=== PATIENT | female | born 1955 | race Caucasian/White ===

== ENCOUNTER 2023-12-11 21:04 | Emergency (ER) | payer MEDICARE, OTHER, SELFPAY ==
[2023-12-11 21:18] LABS: % Basophils 0.4 % (0-2); % Eosinophils 3.1 % (0-6); % Immature Granulocytes 0.3 % (0-0.5); % Lymphocytes 34.3 % (20.5-51.1); % Monocytes 9.8 % (1.7-9.3); % Neutrophils 52.1 % (42.2-75.2); Absolute Eosinophils 0.2 10^3/uL (0-0.7); Absolute Lymphocytes 2.5 10^3/uL (1.2-3.4); Absolute Monocytes 0.7 10^3/uL (0.1-0.6); Absolute Neutrophils 3.7 10^3/uL (1.4-6.5); Hematocrit 35.5 % (37.0-47.0); Mean Corp Hgb Conc. 33.8 g/dL (33.0-37.0); Mean Corpuscular Hgb 27.1 pg (27.0-31.0); Mean Corpuscular Volume 80.3 fL (81.0-99.0); Mean Platelet Volume 8.8 fL (7.4-10.4); Nucleated Red Blood Cells % 0 %; Platelet Count 316 10^3/uL (130-400); Red Blood Cell Count 4.42 10^6/uL (4.20-5.40); Red Cell Dist. Width 13.7 % (11.5-14.5); White Blood Cell Count 7.1 10^3/uL (4.8-10.8)
[2023-12-11 21:31] LABS: ALT (SGPT) 10 U/L (0-35); AST (SGOT) 13 U/L (14-36); Alkaline Phosphatase 81 U/L (38-126); Blood Urea Nitrogen 12 mg/dl (7-17); Calcium 10.3 mg/dl (8.4-10.2); Carbon Dioxide 26 mmol/L (22-30); Chloride 105 mmol/L (98-107); Glucose 112 mg/dl (70-99); Lipase 62 U/L (23-300); Sodium 141 mmol/L (135-145); Total Bilirubin 0.4 mg/dl (0.2-1.3); Total Protein 6.9 g/dl (6.3-8.2); eGFR > 60.00
[2023-12-11 23:34] VITALS: BP 111/63
[2023-12-12] VITALS: BP 113/68
[2023-12-12] MEDS: NSS 1000 IV ×2 (00:06→03:22)
--- NOTE | 2023-12-12 00:08 | EDRN ---
called pharmacy for potassium drip
[2023-12-12] MEDS: KCL 270 MEQ IV (00:34)
--- NOTE | 2023-12-12 01:30 | ED.GENMED ---
History of Present Illness
General
Chief Complaint: Abdominal Symptoms
Source: patient and family (Daughter)
Exam Limitations: none
Time Seen by Provider: 12/11/23 23:26
Nursing documentation reviewed up to this point in time: agreed with
Travel History
Have you had any contact with someone who has COVID-19?: No
Do you have any symptoms of coronavirus? Fever > 100 degrees, chills, cough, shortness of breath, sore throat, loss of taste or smell, muscle aches, or headache?: No
History of Present Illness
History of Present Illness:
68-year-old female with a past medical history of obesity, hypertension, irritable bowel syndrome, diabetes, CAMILLE on CPAP who presents to the emergency room with her daughter for evaluation of abdominal pain and diarrhea. Patient reports onset of
symptoms about 10 days ago and they have been constant since that time. She reports about 8-10 daily episodes of essentially totally liquid nonbloody diarrhea. She says that she has been having crampy periumbilical to left-sided abdominal pain
associated with the diarrhea. She has not had any nausea or vomiting. No fevers or chills. She has not had any urinary issues. She says that she spoke with her primary doctor and yesterday dropped off a stool sample to be tested for C. difficile
but has not received any results. She denies any recent travel. She did have a recent course of antibiotics which was prolonged for treatment of H. pylori�she finished this course in mid October. She sees Dr. Calles for GI.
Past History
Past History
ED Past Surgical History: Orthopedic, Urological and Other
Social History
Personal: Single
Review of Systems
Review of Systems
All Other Systems: ROS reviewed and negative except as documented in HPI and ROS
Constitutional: Denies fever or chills
EENT: Denies sore throat or runny nose
Respiratory: Denies cough or trouble breathing
Cardiac: Denies chest pain or palpitations
ABD/GI: Reports abdominal pain and diarrhea; Denies nausea, vomiting or bloody stools
: Denies dysuria, frequency or flank pain
Musculoskeletal: Denies neck pain or back pain
Neurological: Denies dizzy or headache
Phy Exam
Physical Exam
Physical Exam:
General: Awake, alert, oriented x3; no acute distress
Head: Normocephalic, atraumatic
Eyes: Conjunctiva normal, sclera anicteric
Throat: Airway intact, dry mucous membranes
Neck: Trachea midline, supple without meningismus
Lungs: Clear to auscultation bilaterally, no wheezing, rales, rhonchi
Heart: Regular rate and rhythm, no murmurs, gallops, or rubs
Abd: Soft, non distended, tender to palpation across the lower abdomen with no peritoneal signs
Neuro: Cranial nerves grossly intact, speech fluid
Skin: no rash
Extremities: No edema in extremities, warm and well-perfused
Scores
Heart Failure Risk
Heart Failure Risk Score: Not Applicable
Heart Score for Chest Pain Patients
STEMI patient?: Not applicable
Withdrawal Assessment of Alcohol
Withdrawal Assessment Completed?: Not applicable
Course
Orders/Labs/Results
Orders:
Orders
12/11/23 21:13
Complete Blood Count/With Diff Urgent
Comprehensive Metabolic Panel Urgent
Lipase Urgent
12/11/23 23:28
0.9% Sodium Chloride 1000 ml [Nss] 1,000 ml IV BOLUS
12/11/23 23:29
STOOL [C difficile Antigen & Toxins] Urgent
ADDIE Source: Feces/Stool
Specimen Description:
Stool Culture Urgent
ADDIE Source: Feces/Stool
Specimen Description:
12/12/23 00:02
CT Abd/pelvis W Iv Cont Urgent
Reason For Exam: abd pain with diarrhea
12/12/23 00:09
Potassium Chloride [KCl] 40 meq 0.9% Sodium Chloride 250 ml [Nss] 250 ml IV NOW
12/12/23 01:54
Potassium Chloride [KCl] 20 meq PO NOW STA
12/12/23 03:00
0.9% Sodium Chloride 1000 ml [Nss] 1,000 ml IV 80 mls/hr
12/12/23 06:43
Potassium Urgent
Abnormal Lab Results
12/11/23 12/12/23
21:13 06:43
Hct 35.5 L %
(37.0-47.0)
MCV 80.3 L fL
(81.0-99.0)
Absolute Monos (auto) 0.7 H 10^3/uL
(0.1-0.6)
Monocytes % 9.8 H %
(1.7-9.3)
Potassium 3.0 L mmol/L 3.2 L mmol/L
(3.5-5.1) (3.5-5.1)
Glucose 112 H mg/dl
(70-99)
Calcium 10.3 H mg/dl
(8.4-10.2)
AST 13 L U/L
(14-36)
12/11/23 21:13
12/12/23 06:43
Vital Signs
Initial and Last Documented VS:
Initial Vital Signs
Temp Pulse Resp Pulse Ox
36.6 C 63 16 95
12/11/23 21:05 12/11/23 21:05 12/11/23 21:05 12/11/23 21:05
Last Documented Vital Signs
Temp Pulse Resp BP Pulse Ox
36.6 C 69 14 127/70 93
12/11/23 21:05 12/12/23 04:00 12/12/23 04:00 12/12/23 04:00 12/12/23 04:00
MDM/Problems Addressed
Differential Diagnosis Includes:
Colitis including C. difficile colitis, enteritis, diverticulitis
MDM/Problems Addressed:
68-year-old female presents for evaluation of abdominal pain and profuse diarrhea for the past 10 days. Vital signs are normal here. Exam as above. Plan to place an IV check labs including a CBC and a CMP. Will check CT of the abdomen pelvis.
Will send stool samples. Will provide IV hydration. Will reassess after the above.
Labs reviewed: CBC shows no clinically significant abnormalities, CMP shows hypokalemia 3.0 likely GI loss we will replete with IV potassium. Awaiting results of CT.
CT showed no acute intra-abdominal pathology to account for her symptoms. Suspect that this is likely a case of colitis; patient has been here in the emergency room for over 7 hours and has not had any diarrhea and so we were not able to send stool
samples. She did already submit outpatient stool studies yesterday although the results are pending. Her potassium after p.o. and IV potassium is uptrending and she appears well-hydrated after some fluids. Vital signs have been persistently
normal throughout her prolonged ED stay. There is no clear indication for admission at this point in time�I had a long discussion with the patient and her daughter. I explained that we should refrain from any antibiotics pending stool studies and
a are in agreement with this plan. I did offer admission for observation but patient feels comfortable with discharge and can follow-up with her primary doctor and GI as an outpatient. I did advise her regarding her potassium and we will start her
on a potassium supplement at home and I provided a prescription for repeat chemistries later this week to follow-up on her potassium level. I advised her to follow-up with her primary doctor this week to go over previously submitted stool studies
as well as the potassium levels. She indicated understanding and agreement with this plan. We spoke about return precautions and all questions were answered.
Chronic conditions affecting care:
PUD/H. pylori requiring prolonged antibiotic course�higher risk for C. difficile infection
*Radiology
Radiology exam reviewed: radiology read reviewed
*Pulse Oximetry
Patient hypoxic: no
*Critical Care Note
Total Time (30-74mins, 75-104mins- exclusive of procedures): Not Applicable
Data Reviewed
Source: patient, records and family
ED Attending Note
-
Portions of this chart may have been created with voice recognition software.� Occasional wrong word or��sound alike� substitutions may have occurred due to the inherent limitations of voice recognition software.
Discharge Plan
Departure
Patient Disposition: Home (Routine Discharge)
Date of Disposition: 12/12/23
Time of Disposition: 07:30
Patient with high blood pressure during this ER visit?: No
Discharge Problem:
Diarrhea, Hypokalemia
Instructions: Diarrhea in teens and adults, Dehydration, Adult (DC), Kinzers Diet
Prescriptions:
New
potassium chloride [K-Tab] 20 mEq tablet extended release
20 meq PO DAILY Qty: 20 0RF
No Action
acetaminophen [Tylenol] 325 mg Tablet
650 mg PO Q4H PRN (Reason: pain)
cyanocobalamin (vitamin B-12) [Vitamin B-12] 1,000 mcg Tablet
1,000 mcg PO DAILY
amlodipine [Norvasc] 10 mg Tablet
10 mg PO DAILY
paroxetine HCl [Paxil CR] 25 mg Tablet Extended Release 24 Hr
25 mg PO DAILY
valsartan-hydrochlorothiazide [Diovan HCT] 320-25 mg Tablet
1 tab PO DAILY
aspirin 81 mg Capsule
81 mg PO DAILY
Jardiance 25 mg Tablet
25 mg PO DAILY
Trulicity 0.75 mg/0.5 mL Pen Injector
0.75 mg SC QWEEK
Gemtesa 75 mg Tablet
75 mg PO DAILY
Referrals:
Kaila Calles MD [Active] - Call in 1-3 days for appt
Activity Restrictions/Additional Instructions:
You were seen in the emergency room for diarrhea�in the emergency room you had blood work and a CT scan. Your blood work was significant for low potassium and you were given extra potassium here in the emergency room. You should take potassium
supplement as prescribed and you will need to have your potassium repeated later this week to ensure that he continues to improve. You should make sure that you are drinking plenty of fluids including electrolyte containing fluids such as Pedialyte
or Gatorade. You should stick to a bland diet for the next week. You should follow-up with your primary doctor later this week to follow-up on your outpatient stool studies�unfortunately we were unable to get a stool sample here to send for more
urgent studies. If you feel your symptoms are worsening or you have new symptoms that are concerning to you should return here to the emergency room for reassessment.
Thank you for visiting the Emergency Department at [facility].
1. Please schedule a follow up appointment as directed. Call first thing tomorrow morning to make an appointment.
2. If indicated, please take your medications as instructed and indicated on discharge paperwork.
3. If any of your symptoms do not improve, or persist, or become more severe within 6-12 hours, please return to the emergency department for further care.
4. Please return to the emergency department if you develop a headache, neck pain/stiffness, fever greater than 100.4F, chest pain, shortness of breath, persistent nausea, vomiting, slurred speech, difficulty walking, numbness/tingling, weakness,
signs of infection or any other symptoms that are worrisome to you.
Please call [phone] if you have any questions.
Interventions
Interventions:
*Risk Screen - Suicide Last Done: 12/11/23 21:05
*General Assessment Last Done: 12/11/23 21:05
*Neglect/Abuse Screening Last Done: 12/11/23 21:05
ED- Fall Risk Assessment Last Done: 12/11/23 23:24
*ED COVID-19 Vaccine History Last Done: 12/11/23 23:24
NB-Yxhwbd-Fkqfmcdtyt Assessment Last Done: 12/11/23 23:24
Discharge Date and Time
Print Language: YAKUT
[2023-12-12] MEDS: KCL 20 MEQ PO (02:03)
[2023-12-12 02:05] VITALS: BP 137/74
[2023-12-12 03:00] VITALS: BP 124/69
[2023-12-12 04:00] VITALS: BP 127/70
[2023-12-12 05:00] VITALS: BP 124/76
[2023-12-12 06:00] VITALS: BP 141/76
[2023-12-12 07:09] LABS: Potassium 3.2 mmol/L (3.5-5.1)
== END 2023-12-12 09:09 | disposition home or self-care (01) ==
LOC: EMR 21:04
PROVIDERS: Student in an Organized Health Care Education/Training Program; EMERGENCY PHYSICIAN Emergency Medicine
DX: E87.6 Hypokalemia (principal); R19.7 Diarrhea, unspecified; R10.9 Unspecified abdominal pain; I10 Essential (primary) hypertension; E11.9 Type 2 diabetes mellitus without complications; E66.9 Obesity, unspecified; G47.33 Obstructive sleep apnea (adult) (pediatric); K58.0 Irritable bowel syndrome with diarrhea; M19.90 Unspecified osteoarthritis, unspecified site; F41.9 Anxiety disorder, unspecified; F32.A Depression, unspecified; Z79.82 Long term (current) use of aspirin; Z88.0 Allergy status to penicillin
CPT/HCPCS: 99285; 96374; 96361; 74177; 80053; 83690; 84132; 85025; 87045; 87046; 87324; 87427; 87449; Q9967

== ENCOUNTER 2023-12-24 17:15 | Observation (INO) | payer MEDICARE, OTHER, SELFPAY ==
[2023-12-24] VITALS (8 sets, daily range): BP systolic 111–144; BP diastolic 57–84; BMI 36.9; BMI 36.6
[2023-12-24 13:16] LABS: % Basophils 0.6 % (0-2); % Eosinophils 2.3 % (0-6); % Immature Granulocytes 0.4 % (0-0.5); % Lymphocytes 21.2 % (20.5-51.1); % Monocytes 7.1 % (1.7-9.3); % Neutrophils 68.4 % (42.2-75.2); Absolute Basophils 0.1 10^3/uL (0-0.2); Absolute Eosinophils 0.2 10^3/uL (0-0.7); Absolute Lymphocytes 1.7 10^3/uL (1.2-3.4); Absolute Monocytes 0.6 10^3/uL (0.1-0.6); Absolute Neutrophils 5.4 10^3/uL (1.4-6.5); Hemoglobin 12.6 g/dL (12.0-16.0); Mean Corp Hgb Conc. 33.2 g/dL (33.0-37.0); Mean Corpuscular Hgb 26.8 pg (27.0-31.0); Mean Corpuscular Volume 80.7 fL (81.0-99.0); Mean Platelet Volume 8.7 fL (7.4-10.4); Nucleated Red Blood Cells % 0 %; Platelet Count 381 10^3/uL (130-400); Red Blood Cell Count 4.71 10^6/uL (4.20-5.40); Red Cell Dist. Width 14.1 % (11.5-14.5); White Blood Cell Count 7.9 10^3/uL (4.8-10.8)
[2023-12-24 13:54] LABS: ALT (SGPT) 11 U/L (0-35); AST (SGOT) 16 U/L (14-36); Albumin 4.2 g/dl (3.5-5.0); Alkaline Phosphatase 101 U/L (38-126); Blood Urea Nitrogen 13 mg/dl (7-17); Calcium 10.4 mg/dl (8.4-10.2); Carbon Dioxide 23 mmol/L (22-30); Chloride 110 mmol/L (98-107); Glucose 105 mg/dl (70-99); Potassium 3.7 mmol/L (3.5-5.1); Sodium 143 mmol/L (135-145); Total Bilirubin 0.5 mg/dl (0.2-1.3); Total Protein 7.2 g/dl (6.3-8.2); eGFR > 60.00
[2023-12-24 14:14] LABS: Lipase 72 U/L (23-300)
--- NOTE | 2023-12-24 15:36 | ED.GENMED ---
History of Present Illness
<Iza Lozada NP - Last Filed: 12/25/23 15:41>
General
Chief Complaint: Abdominal Symptoms
Source: patient
Exam Limitations: none
Time Seen by Provider: 12/24/23 15:03
Nursing documentation reviewed up to this point in time: agreed with
Travel History
Have you had any contact with someone who has COVID-19?: No
Do you have any symptoms of coronavirus? Fever > 100 degrees, chills, cough, shortness of breath, sore throat, loss of taste or smell, muscle aches, or headache?: No
History of Present Illness
History of Present Illness:
Patient to ED with complaint of severe diarrhea. She was seen in ED on 12-11 for same. States since that visit her symptoms have worsened. She reports 8-10 episodes of diarrhea daily. States she has had issues with diarrhea for the past 3 years but
not to this extent. Follows with Dr. Harrison. Treated for H.Pylori in october and felt that her symptoms improved until 3 weeks ago. She had a SIBO test by Dr. Calles recently but results are not back. Labs, CT from 12/11 normal. SHe had
outpatient stool culture and c-diff, both tests neg. She denies any blood in stool. Reports generalized mild abdominal discomfort. +cramping. Denies fever/chills, n/v. Brought self back to ED. Reports 4 episodes of diarrhea so far today.
Past History
<Iza Lozada GLOVE SEWER - Last Filed: 12/25/23 15:41>
Past History
ED Past Medical History: HTN and NIDDM
ED Past Surgical History: Orthopedic, Urological and Other
Social History
Personal: Single
Review of Systems
<Iza Lozada GLOVE SEWER - Last Filed: 12/25/23 15:41>
Review of Systems
Allergies reviewed?: Yes
All Other Systems: ROS reviewed and negative except as documented in HPI and ROS
Constitutional: Reports no symptoms
EENT: Reports no symptoms
Respiratory: Reports no symptoms
Cardiac: Reports no symptoms
ABD/GI: Reports diarrhea (8-10 episodes /day)
: Reports no symptoms
Musculoskeletal: Reports no symptoms
Skin: Reports no symptoms
Neurological: Reports no symptoms
Psychiatric: Reports no symptoms
Phy Exam
<Iza Lozada GLOVE SEWER - Last Filed: 12/25/23 15:41>
General Physical Exam
General Presentation: no apparent distress
General age: appears stated age
General Skin: warm and dry
General Habitus: obese
General Mental: alert
Gastrointestinal Exam
Gastrointestinal Exam: normal bowel sounds, soft, no organomegaly, non distended and no cva tenderness
Palpation: generalized: Mild tenderness
Musculoskeletal Exam
Musculoskeletal Exam: full ROM and neuro vasc intact
Skin Exam
Skin Exam: normal color, warm/dry and no rash
Psychiatric Exam
Psychiatric Exam: normal mood/affect
Course
<Iza Lozada GLOVE SEWER - Last Filed: 12/25/23 15:41>
Orders/Labs/Results
Orders:
Orders
12/24/23 13:11
CMP [Comprehensive Metabolic Panel] Urgent
Complete Blood Count/With Diff Urgent
Glycohemoglobin (HgbA1c) Urgent
Lipase Urgent
Magnesium Urgent
Comment: MAG ADDED ON BY FLOOR 4:30PM 12-24-23
12/24/23 Dinner
Low Lactose
At Your Request: Full Participation
Low Lactose: 2000 prem/17 CHO Diabetic
12/24/23 16:12
Consult Gastroenterology [GASTROINTESTINAL CONSULT] Urgent
Consulting Provider: Pradeep Ribeiro
Was physician already notified: Yes
12/24/23 16:29
Cholestyramine [Questran] 4 gram PO NOW STA
12/24/23 16:32
Add On- LAB Urgent
Tests Added?: magnesium
12/24/23 16:47
Admit/Transfer Patient As Directed
Co-Sign Provider:
Level of Care: Observation services
Assign to:: Medical/Surgical
Physician / Group: Renae Teixeira
Diagnosis: persistent diarrhea
12/24/23 16:48
Code Status As Directed
Resuscitation Status: Full Code
12/24/23 16:55
0.9% Sodium Chloride 500 ml [Nss] 500 ml IV BOLUS
12/24/23 18:31
Acetaminophen [Tylenol] 650 mg PO Q4HPRN PRN
Dextrose 50%-Water [Dextrose 50% Syringe] 12.5 grams IV [id number] PRN
Diphenoxylate / Atropine [Lomotil] 1 tablet PO Q6HPRN PRN
Enoxaparin Sodium [Lovenox] 40 mg SC QPM
Glucagon [GlucaGen] 1 mg IM PRN PRN
Lactated Ringers [Lr] 1,000 ml IV 80 mls/hr
12/24/23 18:31
Add On- LAB Routine
Tests Added?: HgbA1C to today's lab
Activity As Directed
Activity Level: As Tolerated
Bedside Glucose Monitoring As Directed
Frequency: AC&HS
Additional Instructions:: Change to q6h if pt on TPN, tube feeding or not eating
Nursing to Place Non Medication Order As Directed
Physician Order: please TT me magnesium results
Vital Signs As Directed
Frequency: Per unit guidelines
DX Deep Vein Thrombosis Video Routine
12/24/23 22:00
Pravastatin Sodium [Pravachol] 10 mg PO HS
12/24/23 22:14
Calprotectin, Fecal [S] Urgent
Date Specimen was Collected: 12/24/23
Time Specimen was Collected: 22:07
Pancreatic Elastase, Fecal [S] Urgent
Date Specimen was Collected: 12/24/23
Time Specimen was Collected: 22:07
12/25/23 06:42
Complete Blood Count/With Diff IN AM
Comprehensive Metabolic Panel IN AM
Magnesium IN AM
12/25/23 07:30
Insulin Aspart Corrective Low [Novolog Flexpen-Low Resistance] See Protocol SC AC
12/25/23 08:00
Aspirin Chewable [Low Strength Aspirin] 81 mg PO DAILY
Cholestyramine [Questran] 4 gram PO DAILY
Paroxetine [Paxil] 20 mg PO DAILY
Tolterodine Extended Release [Detrol LA] 4 mg PO DAILY
Abnormal Lab Results
12/24/23
13:11
MCV 80.7 L fL
(81.0-99.0)
MCH 26.8 L pg
(27.0-31.0)
Chloride 110 H mmol/L
(98-107)
Creatinine 0.5 L mg/dL
(0.6-1.0)
Glucose 105 H mg/dl
(70-99)
Hemoglobin A1c 6.8 H %
(4.0-5.6)
Calcium 10.4 H mg/dl
(8.4-10.2)
12/24/23 13:11
12/24/23 13:11
Vital Signs
Initial and Last Documented VS:
Initial Vital Signs
Temp Pulse Resp BP Pulse Ox
98.2 F 94 16 144/84 94
12/24/23 12:44 12/24/23 12:44 12/24/23 12:44 12/24/23 12:44 12/24/23 12:44
Last Documented Vital Signs
Temp Pulse Resp BP Pulse Ox
98.4 F 79 18 114/72 93
12/25/23 07:00 12/25/23 12:00 12/25/23 07:00 12/25/23 12:00 12/25/23 10:14
<Evelin Antoine MD - Last Filed: 12/24/23 16:02>
Orders/Labs/Results
Orders:
Orders
12/24/23 13:11
CMP [Comprehensive Metabolic Panel] Urgent
Complete Blood Count/With Diff Urgent
Glycohemoglobin (HgbA1c) Urgent
Lipase Urgent
Magnesium Urgent
Comment: MAG ADDED ON BY FLOOR 4:30PM 12-24-23
12/24/23 Dinner
Low Lactose
At Your Request: Full Participation
Low Lactose: 2000 prem/17 CHO Diabetic
12/24/23 16:12
Consult Gastroenterology [GASTROINTESTINAL CONSULT] Urgent
Consulting Provider: Pradeep Ribeiro
Was physician already notified: Yes
12/24/23 16:29
Cholestyramine [Questran] 4 gram PO NOW STA
12/24/23 16:32
Add On- LAB Urgent
Tests Added?: magnesium
12/24/23 16:47
Admit/Transfer Patient As Directed
Co-Sign Provider:
Level of Care: Observation services
Assign to:: Medical/Surgical
Physician / Group: Renae Teixeira
Diagnosis: persistent diarrhea
12/24/23 16:48
Code Status As Directed
Resuscitation Status: Full Code
12/24/23 16:55
0.9% Sodium Chloride 500 ml [Nss] 500 ml IV BOLUS
12/24/23 18:31
Acetaminophen [Tylenol] 650 mg PO Q4HPRN PRN
Dextrose 50%-Water [Dextrose 50% Syringe] 12.5 grams IV [id number] PRN
Diphenoxylate / Atropine [Lomotil] 1 tablet PO Q6HPRN PRN
Enoxaparin Sodium [Lovenox] 40 mg SC QPM
Glucagon [GlucaGen] 1 mg IM PRN PRN
Lactated Ringers [Lr] 1,000 ml IV 80 mls/hr
12/24/23 18:31
Add On- LAB Routine
Tests Added?: HgbA1C to today's lab
Activity As Directed
Activity Level: As Tolerated
Bedside Glucose Monitoring As Directed
Frequency: AC&HS
Additional Instructions:: Change to q6h if pt on TPN, tube feeding or not eating
Nursing to Place Non Medication Order As Directed
Physician Order: please TT me magnesium results
Vital Signs As Directed
Frequency: Per unit guidelines
DX Deep Vein Thrombosis Video Routine
12/24/23 22:00
Pravastatin Sodium [Pravachol] 10 mg PO HS
12/24/23 22:14
Calprotectin, Fecal [S] Urgent
Date Specimen was Collected: 12/24/23
Time Specimen was Collected: 22:07
Pancreatic Elastase, Fecal [S] Urgent
Date Specimen was Collected: 12/24/23
Time Specimen was Collected: 22:07
12/25/23 06:42
Complete Blood Count/With Diff IN AM
Comprehensive Metabolic Panel IN AM
Magnesium IN AM
12/25/23 07:30
Insulin Aspart Corrective Low [Novolog Flexpen-Low Resistance] See Protocol SC AC
12/25/23 08:00
Aspirin Chewable [Low Strength Aspirin] 81 mg PO DAILY
Cholestyramine [Questran] 4 gram PO DAILY
Paroxetine [Paxil] 20 mg PO DAILY
Tolterodine Extended Release [Detrol LA] 4 mg PO DAILY
Abnormal Lab Results
12/24/23
13:11
MCV 80.7 L fL
(81.0-99.0)
MCH 26.8 L pg
(27.0-31.0)
Chloride 110 H mmol/L
(98-107)
Creatinine 0.5 L mg/dL
(0.6-1.0)
Glucose 105 H mg/dl
(70-99)
Hemoglobin A1c 6.8 H %
(4.0-5.6)
Calcium 10.4 H mg/dl
(8.4-10.2)
12/24/23 13:11
12/24/23 13:11
Vital Signs
Initial and Last Documented VS:
Initial Vital Signs
Temp Pulse Resp BP Pulse Ox
98.2 F 94 16 144/84 94
12/24/23 12:44 12/24/23 12:44 12/24/23 12:44 12/24/23 12:44 12/24/23 12:44
Last Documented Vital Signs
Temp Pulse Resp BP Pulse Ox
98.4 F 79 18 114/72 93
12/25/23 07:00 12/25/23 12:00 12/25/23 07:00 12/25/23 12:00 12/25/23 10:14
<Iza Lozada NP - Last Filed: 12/25/23 15:41>
*Critical Care Note
Total Time (30-74mins, 75-104mins- exclusive of procedures): Not Applicable
<Iza Lozada NP - Last Filed: 12/25/23 15:41>
Update Note
Update Note:
Dr. Ribeiro consulted via tiger text. requests stool for elastase and calprtectin. Start Questran and lomotil. Patient will be admitted to hospitalists service. GI consult place.
ED Attending Note
<Iza Lozada NP - Last Filed: 12/25/23 15:41>
-
Portions of this chart may have been created with voice recognition software.� Occasional wrong word or��sound alike� substitutions may have occurred due to the inherent limitations of voice recognition software.
<Evelin Antoine MD - Last Filed: 12/24/23 16:02>
ED Attending Note
Patient seen and examined by attending physician: Yes
I performed the substantive portion of visit, reviewed & personally made and approve the management plan that is documented in note by myself or SHIRA.: Yes
ED Attending Note:
Patient appears well and comfortable. Abdomen is soft but mildly distended. There is no rebound or guarding. I reviewed stool studies which are negative.
Discharge Plan
Departure
Patient Disposition: Admit
Date of Disposition: 12/24/23
Time of Disposition: 16:10
Presentation/result/management discussed w/ accepting MD/DO: Hospitalist
Patient with high blood pressure during this ER visit?: Yes
Condition: Fair
Covid-19: Not Applicable
Discharge Problem:
Intractable diarrhea
Interventions
Interventions:
*Risk Screen - Suicide Last Done: 12/24/23 19:53
*General Assessment Last Done: 12/24/23 14:42
*Neglect/Abuse Screening Last Done: 12/24/23 14:41
ED- Fall Risk Assessment Last Done: 12/24/23 14:41
*ED COVID-19 Vaccine History Last Done: 12/24/23 12:44
*Nursing Disposition Last Done: 12/24/23 18:32
EQ-Rdcbvo-Ivnxrdudes Assessment Last Done: 12/24/23 14:43
Discharge Date and Time
Discharge Date/Time: 12/24/23 18:33
--- NOTE | 2023-12-24 16:27 | HPS.HSE ---
Family Physician
-
Family Physician: Stacey Abbasi
Chief Complaint
-
diarrhea
History of Present Illness
Ms. Eloise De La Fuente is a 68 yo woman with hx HTN, NIDDM presents with severe diarrhea. Patient was seen in the ER on 12/11 for same and presents with worsening symptoms.
Patient states she has had diarrhea x 3 years. Previously 1-2x/day. Treated for H. Pylori 3 months ago and had some relief. Over past 3 weeks diarrhea progressed now up to 8-10 x/day. + abdominal cramping, no severe pain. No fevers/chills. No
nausea/vomiting. She has been eating and staying hydrated. No chest pain or shortness of breath. No LE swelling.
Medical History
Past Medical History
Past Medical History: Reports Other (HTN, NIDDM)
Past Surgical History: Reports Orthopedic and Urological
Social History
Tobacco: Non-smoker
Alcohol: None
Family History
Family History: Not pertinent
Allergies / Home Medications
Allergies reflects when Allergies were last updated in [facility].
Home Medications with original date entered in [facility]
Allergy/Medication List:
Allergies
Allergy/AdvReac Type Severity Reaction Status Date / Time
Penicillins Allergy racing Verified 10/09/21 21:02
heart
Home Medications
amlodipine 10 mg tablet (Norvasc) 5 mg PO DAILY Blood pressure 01/17/22
aspirin 81 mg capsule 81 mg PO DAILY Blood clot prevention/tx 01/17/22
paroxetine HCl 25 mg tablet,extended release 24 hr (Paxil CR) 25 mg PO DAILY Depression 01/17/22
valsartan 320 mg-hydrochlorothiazide 25 mg tablet (Diovan HCT) 1 tab PO DAILY@1600 Blood pressure 01/17/22
dulaglutide 0.75 mg/0.5 mL subcutaneous pen injector (Trulicity) 0.75 mg SC QWEEK 12/12/23
empagliflozin 25 mg tablet (Jardiance) 25 mg PO DAILY 12/12/23
vibegron 75 mg tablet (Gemtesa) 75 mg PO DAILY 12/12/23
pravastatin 10 mg tablet 10 mg PO HS 12/24/23
Review of Systems
-
History Source: Patient
A 12 point ROS was completed and negative except as noted: Yes
Physical Exam
Vital Signs
Vital Signs
Temp Pulse Resp BP Pulse Ox
98.2 F 74 19 111/74 93
12/24/23 12:44 12/24/23 15:15 12/24/23 15:15 12/24/23 15:00 12/24/23 15:15
Physical Exam
General: No Apparent Distress, Conversant and Obese
HEENT: PERRLA
Respiratory: Clear; No Wheezes
Cardiac: S1/S2 and Regular Rhythm
GI: Soft and Other (mildly tender upper quadrant, no rebound or guarding )
Musculoskeletal: No Edema
Skin: Warm and Dry; No Rash
Neuro: AO x 3
Psych: Calm
Laboratory Results
-
12/24/23 13:11
12/24/23 13:11
Laboratory Results
Total Bilirubin 0.5 mg/dl (0.2-1.3) 12/24/23 13:11
AST 16 U/L (14-36) 12/24/23 13:11
ALT 11 U/L (0-35) 12/24/23 13:11
Alkaline Phosphatase 101 U/L (38-126) 12/24/23 13:11
Lipase 72 U/L (23-300) 12/24/23 13:11
Data Reviewed
-
Diagnostic Radiology: Report Reviewed by me
Lab Data: Labs Reviewed by me
Impression/Plan
-
Ms. Eloise De La Fuente is a 68 yo woman with hx HTN, NIDDM presents with severe diarrhea. Patient was seen in the ER on 12/11 for same and presents with worsening symptoms.
Triage VS: T 98.2, P 94, RR 16, BP 144/84, SpO2 94%
LABS: WBC 7.9, Hg 12.6, PLT 381, Na 143, K+ 3.7, Cl 110, BUN 13, Cr 0.5, Glucose 105, Ca 10.5, liver enzymes WNL
CT A/P from 12/11
IMPRESSION:
1. No significant acute abnormality identified in the abdomen or pelvis, as described above.
Diarrhea
-stool culture and C. Diff testing from ER visit 12/[address] A/P from 12/11 without acute abnormality
-2 C. Diff testings outpatient negative per patient
-s/p SIBO testing outpatient, awaiting results
-discussed with Dr. Ribeiro, trial of Cholestyramine/Lomotil
-low lactose diet, avoid sweeteners
-GI consult
-IVF overnight
HTN
-BP 100's in ER and patient did not take evening Diovan/HCTZ
-hold home amlodipine and Diovan HCTZ for now
-monitor
NIDDM
-hold DIRECTOR VOICE Jardiance
-DM diet
-ISS
DVT PPx lovenox subQ
FULL CODE
[2023-12-24] MEDS: QUESTRAN 4 GRAM PO (16:47)
[2023-12-24 17:05] LABS: Magnesium 1.8 mg/dl (1.6-2.3)
[2023-12-24] MEDS: NSS 500 IV (17:05)
[2023-12-24] MEDS: LR 1000 IV (19:37)
[2023-12-24] MEDS: LOVENOX 40 MG SC (19:45)
[2023-12-24] MEDS: LOMOTIL 1 TABLET PO (19:45)
[2023-12-24] MEDS: PRAVACHOL 10 MG PO (21:55)
[2023-12-25 00:56] LABS: Glucose - Point of Care 96 mg/dl (70-99)
[2023-12-25 07:00] VITALS: BP 131/76
[2023-12-25 07:51] LABS: % Basophils 0.6 % (0-2); % Eosinophils 2.7 % (0-6); % Immature Granulocytes 0.3 % (0-0.5); % Lymphocytes 24.3 % (20.5-51.1); % Monocytes 7.7 % (1.7-9.3); % Neutrophils 64.4 % (42.2-75.2); Absolute Eosinophils 0.2 10^3/uL (0-0.7); Absolute Lymphocytes 1.7 10^3/uL (1.2-3.4); Absolute Monocytes 0.5 10^3/uL (0.1-0.6); Absolute Neutrophils 4.5 10^3/uL (1.4-6.5); Hematocrit 37.5 % (37.0-47.0); Mean Corpuscular Hgb 26.4 pg (27.0-31.0); Mean Corpuscular Volume 82.4 fL (81.0-99.0); Mean Platelet Volume 8.8 fL (7.4-10.4); Nucleated Red Blood Cells % 0 %; Platelet Count 338 10^3/uL (130-400); Red Blood Cell Count 4.55 10^6/uL (4.20-5.40); Red Cell Dist. Width 14.2 % (11.5-14.5)
[2023-12-25 08:05] LABS: Glucose - Point of Care 90 mg/dl (70-99)
[2023-12-25 08:14] LABS: ALT (SGPT) < 10 U/L (0-35); AST (SGOT) 16 U/L (14-36); Albumin 3.7 g/dl (3.5-5.0); Alkaline Phosphatase 84 U/L (38-126); Blood Urea Nitrogen 11 mg/dl (7-17); Calcium 9.6 mg/dl (8.4-10.2); Carbon Dioxide 27 mmol/L (22-30); Chloride 109 mmol/L (98-107); Estimated Creatinine Clearance 99 ml/min; Glucose 89 mg/dl (70-99); Magnesium 1.8 mg/dl (1.6-2.3); Potassium 3.9 mmol/L (3.5-5.1); Sodium 144 mmol/L (135-145); Total Bilirubin 0.7 mg/dl (0.2-1.3); Total Protein 6.5 g/dl (6.3-8.2); eGFR > 60.00
[2023-12-25] MEDS: PAXIL 20 MG PO (08:34)
[2023-12-25] MEDS: LOW STRENGTH ASPIRIN 81 MG PO (08:34)
[2023-12-25] MEDS: DETROL LA 4 MG PO (08:35)
[2023-12-25] MEDS: QUESTRAN 4 GRAM PO (08:35)
[2023-12-25 08:59] LABS: Glycohemoglobin (HgbA1c) 6.8 % (4.0-5.6)
--- NOTE | 2023-12-25 11:04 | W.PN.HOSP.TC ---
Today's Communication/Plan
-
see plan
Assessment / Plan
Assessment / Plan
. Eloise De La Fuente is a 68 yo woman with hx HTN, NIDDM presents with severe diarrhea. Patient was seen in the ER on 12/11 for same and presents with worsening symptoms.
CT A/P from 12/11
IMPRESSION:
1. No significant acute abnormality identified in the abdomen or pelvis, as described above.
Diarrhea
-stool culture and C. Diff testing from ER visit 12/[address] A/P from 12/11 without acute abnormality
-2 C. Diff testings outpatient negative per patient
-s/p SIBO testing outpatient, awaiting results
-will order ova and parasites
-discussed with Dr. Ribeiro, trial of Cholestyramine/Lomotil
-low lactose diet, avoid sweeteners
-GI consult appreciated
-HD 1 diarrhea frequency decreased. per discussion with GI will monitor one more day to continue to assess given severity at home. expect DC tomorrow with script for cholestyramine
-s/p IVF overnight
HTN
-BP 100's in ER and patient did not take evening Diovan/HCTZ
-resume home amlodipine this AM
-continue to hold Diovan/hCTZ for now
-monitor
NIDDM
-hold TIN RECOVERY WORKER Jardiance and Trulicity while in-patient
-DM diet
-ISS
DVT PPx lovenox subQ
FULL CODE
Anticipated Discharge: 24 - 48 hours
Subjective/Interval History
-
Date of Service: December 25, 2023
she is eating and drinking well
less diarrhea overnight
Objective Data
-
Labs:
Laboratory Results
12/25/23
06:42
WBC 7.0
Hgb 12.0
Hct 37.5
Plt Count 338
Sodium 144
Potassium 3.9
Chloride 109 H
Carbon Dioxide 27
BUN 11
Creatinine 0.5 L
Glucose 89
Calcium 9.6
Total Bilirubin 0.7
AST 16
ALT < 10
Alkaline Phosphatase 84
Vital Signs:
Vital Signs
Temp Pulse Resp BP Pulse Ox
98.4 F 79 18 131/76 93
12/25/23 07:00 12/25/23 07:00 12/25/23 07:00 12/25/23 07:00 12/25/23 10:14
Review of Systems
-
History Source: Patient
All other systems: Reviewed and negative
Physical Exam
-
General: Well Developed, Well Nourished and No Apparent Distress
HEENT: Normocephalic and Atraumatic
Respiratory: Clear to Auscultation
Cardiac: Regular Rhythm, S1/S2 and Irregular Rhythm; Negative Murmur
GI: Soft and Nontender; Negative Normal Bowel Sounds
Musculoskeletal: No Clubbing, No Cyanosis and No Edema
Neuro: Awake, Alert, AO x 3 and No Motor Deficits
Psych: Calm
Data Reviewed
-
Diagnostic Radiology: Report Reviewed by me
Labs: Labs Reviewed by me
[2023-12-25] MEDS: NORVASC 5 MG PO (12:00)
[2023-12-25 12:03] LABS: Glucose - Point of Care 112 mg/dl (70-99)
[2023-12-25 15:00] VITALS: BP 118/64
[2023-12-25 16:32] LABS: Glucose - Point of Care 117 mg/dl (70-99)
[2023-12-25] MEDS: LOVENOX 40 MG SC (17:12)
--- NOTE | 2023-12-25 19:36 | CON.GI ---
Consultation
-
Date/Time Consultation Requested: 12/24/2023
Date/Time Consultation Performed: 12/25/2023
Requesting Provider: hospitalist
Performing Provider: Hiren HENSON
Reason for Consultation: diarrhea
Medical History
Chief Complaint / HPI
Chief Complaint: diarrhea
History of Present Illness:
68 yo female with pmhx of HTN, DM presents c/o of diarrhea. Patient was seen in the ER on 12/11 for the same symptom. records reviwed. as per patient she has been having intermittent diarrhea for the last 3 years . Previously seen GI at [place] and
then at . Notes from [facility] reviewed .
patient claims worsening symptoms over the last 3 weeks . 8-10 BMs / day . watery stool.no blood or mucous. Nocturnal symptoms +. also c/o intermittent abdominal cramps with BM. no nausea/ vomiting/ fever .Imodium did not hep much
Treated for H. Pylori 3 months ago and had some relief. SIBO testing pending .
prior GI work up
stool studies negative for infection . stool pancreatic elastase normal. prem pro borderline -72. celiac testing neg
patient had colonoscopy in [place] last year - poor prep. colon polyps + incomplete exam . path not available .
Past Medical History
Past Medical History: HTN and NIDDM
Past Surgical History: Orthopedic and Other
Social History
Tobacco: Non-Smoker
Alcohol: None
Allergies / Home Medications
Allergy/AdvReac Type Severity Reaction Status Date / Time
Penicillins Allergy racing Verified 10/09/21 21:02
heart
�Medication �Instructions �Recorded
valsartan 320 1 tab PO DAILY@1600 Blood pressure 01/17/22
mg-hydrochlorothiazide 25 mg
tablet (Diovan HCT)
dulaglutide 0.75 mg/0.5 mL 0.75 mg SC SA@1800 12/12/23
subcutaneous pen injector
(Trulicity)
empagliflozin 25 mg tablet 25 mg PO QPM 12/12/23
(Jardiance)
vibegron 75 mg tablet (Gemtesa) 75 mg PO HS 12/12/23
acetaminophen 500 mg tablet 1,000 mg PO QID PRN mild pain 12/24/23
(Tylenol Extra Strength)
amlodipine 5 mg tablet 5 mg PO DAILY 12/24/23
aspirin 81 mg tablet,delayed 81 mg PO DAILY@1500 12/24/23
release
cholecalciferol (vitamin D3) 125 125 mcg PO DAILY 12/24/23
mcg (5,000 unit) capsule
cyanocobalamin (vitamin B-12) 1,000 mcg PO DAILY 12/24/23
1,000 mcg tablet
paroxetine HCl 25 mg 25 mg PO DAILY 12/24/23
tablet,extended release 24 hr
potassium chloride 20 mEq 20 meq PO DAILY@1500 12/24/23
tablet,extended release
pravastatin 10 mg tablet 10 mg PO HS 12/24/23
Review of Systems
-
All other systems: A 12 pt ROS was Negative except as stated above in HPI
Vital Signs
Temp Pulse Resp BP Pulse Ox
98.5 F 73 18 118/64 94
12/25/23 15:00 12/25/23 15:00 12/25/23 15:00 12/25/23 15:00 12/25/23 15:00
Physical Exam
Exam
General: Well Developed and No Apparent Distress
Respiratory: Clear
Cardiac: S1/S2
GI: Soft, Non Tender, Non Distended and Normal Bowel Sounds
Results
WBC 7.0 10^3/uL (4.8-10.8) 12/25/23 06:42
Hgb 12.0 g/dL (12.0-16.0) 12/25/23 06:42
Hct 37.5 % (37.0-47.0) 12/25/23 06:42
MCV 82.4 fL (81.0-99.0) 12/25/23 06:42
Plt Count 338 10^3/uL (130-400) 12/25/23 06:42
Absolute Neuts (auto) 4.5 10^3/uL (1.4-6.5) 12/25/23 06:42
Sodium 144 mmol/L (135-145) 12/25/23 06:42
Potassium 3.9 mmol/L (3.5-5.1) 12/25/23 06:42
Chloride 109 mmol/L (98-107) H 12/25/23 06:42
Carbon Dioxide 27 mmol/L (22-30) 12/25/23 06:42
BUN 11 mg/dl (7-17) 12/25/23 06:42
Creatinine 0.5 mg/dL (0.6-1.0) L 12/25/23 06:42
Calcium 9.6 mg/dl (8.4-10.2) 12/25/23 06:42
Total Bilirubin 0.7 mg/dl (0.2-1.3) 12/25/23 06:42
AST 16 U/L (14-36) 12/25/23 06:42
ALT < 10 U/L (0-35) 12/25/23 06:42
Alkaline Phosphatase 84 U/L (38-126) 12/25/23 06:42
Lipase 72 U/L (23-300) 12/24/23 13:11
Diagnostic Image Results:
Ct abd/pel with IV cont 12/12/2023- no acute pathology
Prior GI Procedures:
EGD: as per patient 1-2 yr back in [place]
Colonoscopy: 2022 in [place] - see HPI
Assessment / Plan
-
68 y/o female with hx of DM/ HTN c/o chronic diarrhea for 3 years worsening over the last 3 weeks . GI work up at office with - negative for infection . stool elastase normal. calprotectin borderline . celiac negative. last colonoscopy 1
yr back in [place] - colon polyps. poor prep- incomplete. no random bx taken .
Patient has been feeling better this am without any diarrhea since admission after starting on cholestyramine .
-- chronic diarrhea - IBS-D vs SIBO ( test results pending )
-- lactose intolerance'
-- recent rx h.pylori
-- hx of colon polyps
plan
lactose free low fat diet
continue questran
lomotil PRN
if no further diarrhea ok to d/c and follow up as OP
if worsening diarrhea will consider flex. sig with bx for microscopic colitis
Total Time Spent with Patient (in minutes): 55
-
-
Thank you for consultation and allowing me to participate in the patient's care. Please call the transportation dispatcher GI physician during the after hours with any questions or concerns.
[2023-12-25] MEDS: TYLENOL 650 MG PO (20:31)
[2023-12-25] MEDS: PRAVACHOL 10 MG PO (22:31)
[2023-12-25 22:34] LABS: Glucose - Point of Care 106 mg/dl (70-99)
[2023-12-25 23:38] VITALS: BP 129/68
[2023-12-26 06:29] LABS: Blood Urea Nitrogen 12 mg/dl (7-17); Calcium 9.9 mg/dl (8.4-10.2); Carbon Dioxide 25 mmol/L (22-30); Chloride 108 mmol/L (98-107); Estimated Creatinine Clearance 99 ml/min; Glucose 93 mg/dl (70-99); Potassium 3.6 mmol/L (3.5-5.1); Sodium 143 mmol/L (135-145); eGFR > 60.00
[2023-12-26 07:00] VITALS: BP 131/75
[2023-12-26 07:16] VITALS: BMI 36.6
[2023-12-26 08:15] LABS: Glucose - Point of Care 88 mg/dl (70-99)
[2023-12-26] MEDS: DETROL LA 4 MG PO (08:17)
[2023-12-26] MEDS: NORVASC 5 MG PO (08:18)
[2023-12-26] MEDS: TYLENOL 650 MG PO ×2 (08:18→15:42)
[2023-12-26] MEDS: LOW STRENGTH ASPIRIN 81 MG PO (08:18)
[2023-12-26] MEDS: PAXIL 20 MG PO (08:18)
[2023-12-26] MEDS: QUESTRAN 4 GRAM PO (09:24)
--- NOTE | 2023-12-26 11:25 | CM ---
Met with pt at bedside
Lives alone in an apartment. FF set-up. family nearby, supportive. Aids with shopping, cleaning
Independent with adl's, Uses cane to ambulate
DME - cane, shower chair
SNF/HH - denies past hx
Has ride at d/c
PCP - Dr Milton Abbasi
Pharm - [facility]
Discussed DA SILVA with pt
CM consult - Advance Directive
Given information packet on advance directives
Plan - anticipate home no needs
--- NOTE | 2023-12-26 11:39 | W.PN.HOSP.TC ---
Today's Communication/Plan
-
Monitor vital signs see plan
Per patient Abdominal pain and could not tolerate diet
GI to see today
Assessment / Plan
Assessment / Plan
Ms. Eloise De La Fuente is a 68 yo woman with hx HTN, NIDDM presents with severe diarrhea. Patient was seen in the ER on 12/11 for same and presents with worsening symptoms.
CT A/P from 12/11
IMPRESSION:
1. No significant acute abnormality identified in the abdomen or pelvis, as described above.
Diarrhea
-stool culture and C. Diff testing from ER visit 12/[address] A/P from 12/11 without acute abnormality
-2 C. Diff testings outpatient negative per patient
-s/p SIBO testing outpatient, awaiting results
neg for crypto,giardia
-discussed with Dr. Ribeiro, trial of Cholestyramine/Lomotil
-low lactose diet, avoid sweeteners
-GI consult appreciated
-HD 1 diarrhea frequency decreased. per discussion with GI will monitor one more day to continue to assess given severity at home. expect DC tomorrow with script for cholestyramine
HTN
-BP 100's in ER and patient did not take evening Diovan/HCTZ
-resume home amlodipine
-continue to hold Diovan/hCTZ for now
-monitor
NIDDM
-hold FORK LIFT TECHNICIAN Jardiance and Trulicity while in-patient
-DM diet
-ISS
DVT PPx lovenox subQ
FULL CODE
General: Well Developed, Well Nourished and No Apparent Distress
HEENT: Normocephalic and Atraumatic
Respiratory: Clear to Auscultation
Cardiac: Regular Rhythm, S1/S2 and Irregular Rhythm; Negative Murmur
GI: Soft and Nontender; Negative Normal Bowel Sounds
Musculoskeletal: No Clubbing, No Cyanosis and No Edema
Neuro: Awake, Alert, AO x 3 and No Motor Deficits
Psych: Calm
Anticipated Discharge: Within 24 hours
Subjective/Interval History
-
Date of Service: December 26, 2023
does have crampy abdominal pain
Objective Data
-
Labs:
Laboratory Results
12/26/23
05:32
Sodium 143
Potassium 3.6
Chloride 108 H
Carbon Dioxide 25
BUN 12
Creatinine 0.5 L
Glucose 93
Calcium 9.9
Vital Signs:
Vital Signs
Temp Pulse Resp BP Pulse Ox
98.1 F 73 16 141/75 95
12/26/23 07:00 12/26/23 08:18 12/26/23 07:00 12/26/23 08:18 12/26/23 10:55
I&O
12/25/23 12/26/23 12/27/23
06:59 06:59 06:59
Intake Total 1560 / 1560 480 / 480
Balance 1560 / 1560 480 / 480
[2023-12-26 11:58] LABS: Glucose - Point of Care 98 mg/dl (70-99)
[2023-12-26 15:00] VITALS: BP 120/69
[2023-12-26 15:45] VITALS: BMI 36.6
--- NOTE | 2023-12-26 15:58 | W.PN.GI.CBS2 ---
Today's Communication / Plan
-
trial of bentyl
clear liquid diet
Assessment / Plan
-
68 y/o female with hx of DM/ HTN c/o chronic diarrhea for 3 years worsening over the last 3 weeks . GI work up at office with - negative for infection . stool elastase normal. calprotectin borderline . celiac negative. last colonoscopy 1
yr back in [place] - colon polyps. poor prep- incomplete. no random bx taken .
Patient has been feeling better this am without any diarrhea since admission after starting on cholestyramine .
-- chronic diarrhea - IBS-D vs SIBO ( test results pending )
-- lactose intolerance'
-- recent rx h.pylori
-- hx of colon polyps
plan
lactose free low fat diet
continue questran
lomotil PRN
Patient continues to have intermittent abdominal cramps. Will give trial of dicyclomine
if worsening diarrhea will consider flex. sig with bx for microscopic colitis
Discussed with patient's daughter Anne-she is really concerned that her symptoms has been going on for a long time. She is concerned for gastric/colon cancer since it runs in the family. . Discussed with the that prior testing/recent imaging not
showing any evidence of malignancy. But she repeatedly claiming things can change instantly and people can develop cancer and that needs to be checked while she is in the hospital. Since patient is on diet I will change her to clear liquid diet.
I will discuss with Dr. Rutherford will be taking over GI service tonight and discussed with daughter tomorrow about possible endoscopy - inpatient versus outpatient
Total Time Spent with Patient (in minutes): 35
Subjective
Subjective
Date of Service: December 26, 2023
Patient had 1 BM yesterday. Semiformed mushy stool. No BMs today. Intermittent abdominal cramps . Tolerating diet
Objective
Data Reviewed
Laboratory Data:
Laboratory Results
12/25/23 06:42
12/26/23 05:32
Laboratory Results
Magnesium 1.8 mg/dl (1.6-2.3) 12/25/23 06:42
Total Bilirubin 0.7 mg/dl (0.2-1.3) 12/25/23 06:42
AST 16 U/L (14-36) 12/25/23 06:42
ALT < 10 U/L (0-35) 12/25/23 06:42
Alkaline Phosphatase 84 U/L (38-126) 12/25/23 06:42
Lipase 72 U/L (23-300) 12/24/23 13:11
Vital Signs and I&O:
Vital Signs
Temp Pulse Resp BP Pulse Ox
98.1 F 73 16 141/75 95
12/26/23 07:00 12/26/23 08:18 12/26/23 07:00 12/26/23 08:18 12/26/23 10:55
I&O
12/25/23 12/26/23 12/27/23
06:59 06:59 06:59
Intake Total 1560 / 1560 480 / 480
Balance 1560 / 1560 480 / 480
Physical Exam
Physical Exam
GI: Soft, Non Distended and Non Tender
[2023-12-26 16:32] LABS: Glucose - Point of Care 113 mg/dl (70-99)
[2023-12-26] MEDS: BENTYL 20 MG PO ×2 (17:37→21:05)
[2023-12-26] MEDS: LOVENOX 40 MG SC (17:37)
[2023-12-26] MEDS: PRAVACHOL 10 MG PO (21:05)
[2023-12-26 21:07] LABS: Glucose - Point of Care 121 mg/dl (70-99)
[2023-12-26 23:18] VITALS: BP 126/64
[2023-12-27 06:37] LABS: Blood Urea Nitrogen 12 mg/dl (7-17); Calcium 9.7 mg/dl (8.4-10.2); Carbon Dioxide 25 mmol/L (22-30); Chloride 110 mmol/L (98-107); Estimated Creatinine Clearance 99 ml/min; Glucose 95 mg/dl (70-99); Sodium 143 mmol/L (135-145); eGFR > 60.00
[2023-12-27 06:44] VITALS: BMI 36.4
[2023-12-27 07:00] VITALS: BP 153/84
[2023-12-27] MEDS: DETROL LA 4 MG PO (07:59)
[2023-12-27] MEDS: BENTYL 20 MG PO ×2 (07:59→15:22)
[2023-12-27] MEDS: PAXIL 20 MG PO (07:59)
[2023-12-27] MEDS: NORVASC 5 MG PO (07:59)
[2023-12-27] MEDS: LOW STRENGTH ASPIRIN 81 MG PO (07:59)
[2023-12-27] MEDS: QUESTRAN 4 GRAM PO (08:00)
[2023-12-27 08:35] LABS: Glucose - Point of Care 104 mg/dl (70-99)
--- NOTE | 2023-12-27 11:52 | W.PN.HOSP.TC ---
Today's Communication/Plan
-
Monitor vital signs see plan
Continue with clear liquid diet
Awaiting GI evaluation today
Assessment / Plan
Assessment / Plan
Ms. Eloise De La Fuente is a 68 yo woman with hx HTN, NIDDM presents with severe diarrhea. Patient was seen in the ER on 12/11 for same and presents with worsening symptoms.
CT A/P from 12/11
IMPRESSION:
1. No significant acute abnormality identified in the abdomen or pelvis, as described above.
Diarrhea
-stool culture and C. Diff testing from ER visit 12/[address] A/P from 12/11 without acute abnormality
-2 C. Diff testings outpatient negative per patient
-s/p SIBO testing outpatient, awaiting results
neg for crypto,giardia
-discussed with Dr. Ribeiro, trial of Cholestyramine/Lomotil
-low lactose diet, avoid sweeteners
-GI following; needs to speak to the patient and family today regarding further intervention. Currently on clear liquid diet
Continue with cholestyramine
recent rx of hpylori; wondering if she should be on PPI, defer to GI
HTN
-resumed home amlodipine
-continue to hold Diovan/hCTZ for now
-monitor
NIDDM
-hold JOURNALISM TEACHER Jardiance and Trulicity while in-patient
-DM diet
-ISS
DVT PPx lovenox subQ
FULL CODE
General: Well Developed, Well Nourished and No Apparent Distress
HEENT: Normocephalic and Atraumatic
Respiratory: Clear to Auscultation
Cardiac: Regular Rhythm, S1/S2 and Irregular Rhythm; Negative Murmur
GI: Soft and Nontender; Negative Normal Bowel Sounds
Musculoskeletal: No Clubbing, No Cyanosis and No Edema
Neuro: Awake, Alert, AO x 3 and No Motor Deficits
Psych: Calm
Anticipated Discharge: Within 24 hours
Subjective/Interval History
-
Date of Service: December 27, 2023
denies nausea
Objective Data
-
Labs:
Laboratory Results
12/27/23
05:44
Sodium 143
Potassium 4.0
Chloride 110 H
Carbon Dioxide 25
BUN 12
Creatinine 0.4 L
Glucose 95
Calcium 9.7
Vital Signs:
Vital Signs
Temp Pulse Resp BP Pulse Ox
98.6 F 80 18 153/84 94
12/27/23 07:00 12/27/23 07:00 12/27/23 07:00 12/27/23 07:00 12/27/23 08:45
I&O
12/26/23 12/27/23 12/28/23
06:59 06:59 06:59
Intake Total 1560 / 1560 1800 / 1800
Balance 1560 / 1560 1800 / 1800
[2023-12-27 12:00] LABS: Glucose - Point of Care 102 mg/dl (70-99)
[2023-12-27 15:00] VITALS: BP 131/72
[2023-12-27] MEDS: TYLENOL 650 MG PO (15:22)
--- NOTE | 2023-12-27 15:24 | W.PN.GI.CBS2 ---
Addendum entered and electronically signed by Meme Rutherford MD 12/27/23 15:30:
hold diarrhea meds while prepping
Original Note:
Today's Communication / Plan
-
colo tmwr then dc
Assessment / Plan
-
68 y/o female with hx of DM/ HTN c/o chronic diarrhea for 3 years worsening over the last 3 weeks . GI work up at office with - negative for infection . stool elastase normal. calprotectin borderline . celiac negative. last colonoscopy 1
yr back in [place] - colon polyps. poor prep- incomplete. no random bx taken .
Patient has been feeling better this am without any diarrhea since admission after starting on cholestyramine .
-- chronic diarrhea
-- lactose intolerance'
-- recent rx h.pylori
-- hx of colon polyps
I reviewed 27 pages of records - colo 10/2021 poor prep, incomplete colon with polyps removed TAx2; 11/2021 repeat good prep reached cecum 2 small polyps (no path); EGD 12/2022
On neither colonoscopies were random biopsies taken to r/o microscopic colitis
I requested path records from her egd and colo that we are missing
Plan to do cscope tmwr for biopsies to r/o MC- r/a/b reviewed with pt inc but not limited to bleeding, infection, perforation
Agreeable
Due for surveillance 2024
OK to be d/c after cscope I d/w hospitalist with bentyl and questran
Has appt with Nataliya DAVENPORT 01/24 put in DC summ
Subjective
Subjective
Date of Service: December 27, 2023
diarrhea better with questran/bentyl but concerned about going home without etiology
Objective
Data Reviewed
Laboratory Data:
Laboratory Results
12/25/23 06:42
12/27/23 05:44
Laboratory Results
Magnesium 1.8 mg/dl (1.6-2.3) 12/25/23 06:42
Total Bilirubin 0.7 mg/dl (0.2-1.3) 12/25/23 06:42
AST 16 U/L (14-36) 12/25/23 06:42
ALT < 10 U/L (0-35) 12/25/23 06:42
Alkaline Phosphatase 84 U/L (38-126) 12/25/23 06:42
Lipase 72 U/L (23-300) 12/24/23 13:11
Vital Signs and I&O:
Vital Signs
Temp Pulse Resp BP Pulse Ox
98.6 F 80 18 153/84 94
12/27/23 07:00 12/27/23 07:00 12/27/23 07:00 12/27/23 07:00 12/27/23 08:45
I&O
12/26/23 12/27/23 12/28/23
06:59 06:59 06:59
Intake Total 1560 / 1560 1800 / 1800
Balance 1560 / 1560 1800 / 1800
Physical Exam
Physical Exam
GI: Non Distended and Non Tender
--- NOTE | 2023-12-27 16:17 | CM ---
Case management following for d/c planning
Chart reviewed
Continue with clear liquid diet
For GI consult
CM will follow for d/c needs
Plan - anticipate home no needs
[2023-12-27] MEDS: NULYTELY SOLUTION 2 LITERS PO (16:48)
[2023-12-27 17:05] LABS: Glucose - Point of Care 132 mg/dl (70-99)
[2023-12-27] MEDS: LOVENOX 40 MG SC (17:19)
[2023-12-27 21:11] LABS: Glucose - Point of Care 97 mg/dl (70-99)
[2023-12-27] MEDS: PRAVACHOL 10 MG PO (21:25)
[2023-12-27 23:23] VITALS: BP 140/83
--- NOTE | 2023-12-28 03:39 | DOWNTIME ---
There was a [employer] Client Director Of Vendor Management Downtime on 12/28/2023 from 0100 to 12/28/2023 at 0337. Downtime documentation of patient's care, including medication administrations, has been reconciled in the electronic record per guidelines. Refer to the
patient's paper chart under the miscellaneous tab to see printed paper medication records and downtime forms.
[2023-12-28] MEDS: NULYTELY SOLUTION 2 LITERS PO (04:56)
[2023-12-28 05:50] LABS: Glucose - Point of Care 98 mg/dl (70-99)
[2023-12-28 07:00] VITALS: BP 142/86
[2023-12-28] MEDS: NORVASC 5 MG PO (08:11)
[2023-12-28] MEDS: DETROL LA 4 MG PO (08:11)
[2023-12-28] MEDS: LOW STRENGTH ASPIRIN 81 MG PO (08:12)
[2023-12-28] MEDS: PAXIL 20 MG PO (08:12)
[2023-12-28] MEDS: QUESTRAN 4 GRAM PO (09:52)
--- NOTE | 2023-12-28 10:44 | W.PN.HOSP.TC ---
Addendum entered and electronically signed by Lit Mora MD 12/28/23 13:11:
Spoke with patient again, she tolerated diet. Discharge today with outpatient GI follow-up
Time of discharge 38 minutes
Original Note:
Today's Communication/Plan
-
Monitor vital signs
see plan
Status post colonoscopy
Patient will follow-up with GI outpatient
Possible discharge today after tolerates diet
Assessment / Plan
Assessment / Plan
Ms. Eloise De La Fuente is a 68 yo woman with hx HTN, NIDDM presents with severe diarrhea. Patient was seen in the ER on 12/11 for same and presents with worsening symptoms.
CT A/P from 12/11
IMPRESSION:
1. No significant acute abnormality identified in the abdomen or pelvis, as described above.
Diarrhea
-stool culture and C. Diff testing from ER visit 12/[address] A/P from 12/11 without acute abnormality
-2 C. Diff testings outpatient negative per patient
-s/p SIBO testing outpatient, awaiting results
neg for crypto,giardia
-discussed with Dr. Ribeiro, trial of Cholestyramine/Lomotil
-low lactose diet, avoid sweeteners
-GI following; needs to speak to the patient and family today regarding further intervention. Currently on clear liquid diet
Continue with cholestyramine
recent rx of hpylori; wondering if she should be on PPI, defer to GI
s/p cscope 12/27 with colon polyp. Internal hemorrhoids. Patient will follow-up with GI outpatient
HTN
-resumed home amlodipine
-continue to hold Diovan/hCTZ for now
-monitor
NIDDM
-hold UNIVERSITY REGISTRAR Jardiance and Trulicity while in-patient
-DM diet
-ISS
DVT PPx lovenox subQ
FULL CODE
General: Well Developed, Well Nourished and No Apparent Distress
HEENT: Normocephalic and Atraumatic
Respiratory: Clear to Auscultation
Cardiac: Regular Rhythm, S1/S2 and Irregular Rhythm; Negative Murmur
GI: Soft and Nontender; Negative Normal Bowel Sounds
Musculoskeletal: No Clubbing, No Cyanosis and No Edema
Neuro: Awake, Alert, AO x 3 and No Motor Deficits
Psych: Calm
Anticipated Discharge: Today
Subjective/Interval History
-
Date of Service: December 28, 2023
denies nausea
Objective Data
-
Labs:
Laboratory Results
12/28/23
10:23
Sodium Pending
Potassium Pending
Chloride Pending
Carbon Dioxide Pending
BUN Pending
Creatinine Pending
Glucose Pending
Calcium Pending
Vital Signs:
Vital Signs
Temp Pulse Resp BP Pulse Ox
98.3 F 78 19 142/86 95
12/28/23 07:00 12/28/23 08:11 12/28/23 07:00 12/28/23 08:11 12/28/23 07:00
I&O
12/27/23 12/28/23 12/29/23
06:59 06:59 06:59
Intake Total 1800 / 1800 960 / 960
Balance 1800 / 1800 960 / 960
[2023-12-28 10:51] LABS: Blood Urea Nitrogen 6 mg/dl (7-17); Calcium 9.7 mg/dl (8.4-10.2); Carbon Dioxide 27 mmol/L (22-30); Chloride 109 mmol/L (98-107); Estimated Creatinine Clearance 99 ml/min; Glucose 106 mg/dl (70-99); Potassium 3.9 mmol/L (3.5-5.1); Sodium 143 mmol/L (135-145); eGFR > 60.00
[2023-12-28 11:55] LABS: Glucose - Point of Care 95 mg/dl (70-99)
--- NOTE | 2023-12-28 13:10 | W.DCSUMMARY ---
Discharge Summary
Discharge Data
Date of Admission: 12/24/23
Date of Discharge: 12/28/23
-
Pending Results: No
Hospital Course
68-year-old female with past medical history of diarrhea, recent H. pylori, hypertension, dqj-tudlpbw-wrvcpfbdm diabetes mellitus came to the hospital with acute on chronic diarrhea. Stool studies were negative for infection. Patient was seen by
GI throughout hospitalization and was started on cholestyramine and Lomotil along with Bentyl. Patient underwent colonoscopy on 12/27 which showed colon polyp, internal hemorrhoids. GI instructed patient to follow-up with them outpatient for
pathology. While patient was in the hospital her blood pressure was stable with holding Diovan/HCTZ. On discharge she was instructed to restart this medication if her blood pressure is greater than 140/90. Over time patient symptoms continue to
improve and she was able to tolerate diet prior to discharge. On discharge she was instructed to follow-up with all her physicians outpatient.
Discharge Plan
-
Patient Disposition: Home (Routine Discharge)
Discharge Diagnosis/Procedures: Acute on chronic diarrhea
Lactose intolerance
Recent history of H. pylori
Diet: Low Fiber and Other diet
Additional Diets: Lactose-free
Activity: As tolerated
Driving Restrictions: As prior to admission
Bathing Restrictions: None
Referrals:
Stacey Abbasi DO [Family Provider] - in less than 1 week
Nataliya Watson PA-C [Specified Professional Personl] - 01/25/24 8:00 am (Please call to reschedule if you can not keep this appointment. If your insurance requires a referral please contact your primary care physician prior to your appointment. )
Prescriptions:
New
cholestyramine (with sugar) 4 gram Powder In Packet
1 ea PO DAILY Qty: 60 0RF
dicyclomine 20 mg Tablet
20 mg PO TID Qty: 90 0RF
diphenoxylate-atropine 2.5-0.025 mg Tablet
1 tab PO Q6HPRN PRN (Reason: diarrhea) Qty: 20 0RF
Continued
Jardiance 25 mg Tablet
25 mg PO QPM
Trulicity 0.75 mg/0.5 mL Pen Injector
0.75 mg SC SA@1800
Gemtesa 75 mg Tablet
75 mg PO HS
pravastatin 10 mg Tablet
10 mg PO HS
cyanocobalamin (vitamin B-12) 1,000 mcg Tablet
1,000 mcg PO DAILY
amlodipine 5 mg Tablet
5 mg PO DAILY
aspirin 81 mg Tablet,Delayed Release (Dr/Ec)
81 mg PO DAILY@1500
acetaminophen [Tylenol Extra Strength] 500 mg Tablet
1,000 mg PO QID PRN (Reason: mild pain)
cholecalciferol (vitamin D3) 125 mcg (5,000 unit) Capsule
125 mcg PO DAILY
paroxetine HCl 25 mg Tablet Extended Release 24 Hr
25 mg PO DAILY
Held
valsartan-hydrochlorothiazide [Diovan HCT] 320-25 mg Tablet
1 tab PO DAILY@1600
Hold Instructions: Restart when blood pressure greater than 140/90
Discontinued
potassium chloride 20 mEq Tablet Extended Release
20 meq PO DAILY@1500
Discharge Orders:
Discharge Patient (As Directed); Ordered 12/28/23
Ordered By: Lit Mora
Discharge Date and Time
Discharge Date/Time: 12/28/23 15:16
Print Language: CZECH
--- NOTE | 2023-12-28 13:28 | CM ---
Met with patient at bedside
[facility] IMM benefit explained; form signed @ 1320
Plan: Discharge to home today; no needs; son will transport home
[2023-12-28 14:02] VITALS: BP 122/82
[2023-12-29] LABS: Calprotectin, Fecal 36 ug/g (<=49)
[2023-12-29 00:07] LABS: Pancreatic Elastase, Fecal 252 ug/g (>=100)
== END 2023-12-28 15:16 | disposition home or self-care (01) ==
LOC: 3 WEST ACU 17:15
PROVIDERS: Emergency Medicine; Nurse Practitioner; ADMITTING PHYSICIAN Student in an Organized Health Care Education/Training Program; ATTENDING PHYSICIAN Internal Medicine; CONSULT PHYSICIAN Internal Medicine Gastroenterology; EMERGENCY PHYSICIAN Emergency Medicine; FAMILY PHYSICIAN Family Medicine
DX: R19.7 Diarrhea, unspecified (principal); R10.9 Unspecified abdominal pain; E73.9 Lactose intolerance, unspecified; D12.3 Benign neoplasm of transverse colon; K63.5 Polyp of colon; D12.2 Benign neoplasm of ascending colon; K57.30 Diverticulosis of large intestine without perforation or abscess without bleeding; K64.0 First degree hemorrhoids; I10 Essential (primary) hypertension; E11.9 Type 2 diabetes mellitus without complications; Z88.0 Allergy status to penicillin; Z79.82 Long term (current) use of aspirin; Z79.85 Long-term (current) use of injectable non-insulin antidiabetic drugs; Z79.84 Long term (current) use of oral hypoglycemic drugs; Z86.010 Personal history of colon polyps; Z80.0 Family history of malignant neoplasm of digestive organs; Z87.19 Personal history of other diseases of the digestive system; Z86.19 Personal history of other infectious and parasitic diseases
CPT/HCPCS: 45380; 88305; 80048; 80053; 82653; 82962; 83036; 83690; 83735; 83993; 85025; 87328; 87329; 99284; G0378

== ENCOUNTER 2024-01-01 06:51 | Inpatient (IN) | payer MEDICARE, OTHER, SELFPAY ==
[2024-01-01] VITALS (20 sets, daily range): BP systolic 94–153; BP diastolic 45–91; PULSE 59–85
[2024-01-01 02:05] LABS: Glucose - Point of Care 141 mg/dl (70-99)
--- NOTE | 2024-01-01 02:09 | EDRN ---
When pt.'s family arrived to rm. 26, family is stating, 'she isn't acting right. I don't know how to describe it but I'm concerned she is having a stroke'. Family unable to articulate exactly what is 'off', but does note her speech is slower than
normal. RN performed POC glucose, informed Dr. Davis, CT head ordered per verbal orders. MD Davis to bedside, performing neuro. exam.
[2024-01-01] MEDS: ZOFRAN 4 MG IV (02:49)
--- NOTE | 2024-01-01 02:52 | ED.GENMED ---
History of Present Illness
General
Chief Complaint: Abdominal Symptoms
Source: patient
Exam Limitations: none
Time Seen by Provider: 01/01/24 01:46
Nursing documentation reviewed up to this point in time: agreed with
History of Present Illness
History of Present Illness:
Pleasant 68-year-old female presents with dizziness with an episode of diarrhea. Patient was just discharged from the hospital after stay for diarrhea. Patient does report abdominal pain. Family was concerned because they feel that she is 'off'.
Patient states that she is feeling normal.
Past History
Past History
ED Past Medical History: HTN and NIDDM
ED Past Surgical History: Orthopedic, Urological and Other
Social History
Personal: Single
Review of Systems
Review of Systems
Allergies reviewed?: Yes
All Other Systems: ROS reviewed and negative except as documented in HPI and ROS
Constitutional: Reports no symptoms
EENT: Reports no symptoms
Respiratory: Reports no symptoms
Cardiac: Reports no symptoms
ABD/GI: Reports abdominal pain and diarrhea
: Reports no symptoms
Musculoskeletal: Reports no symptoms
Skin: Reports no symptoms
Neurological: Reports no symptoms
Endocrine: Reports no symptoms
Hematologic/Lymphatic: Reports no symptoms
Psychiatric: Reports no symptoms
Phy Exam
General Physical Exam
General Presentation: well appearing and no apparent distress
General Skin: warm and dry
General Habitus: normal
General Mental: alert
General Hydration: appears well hydrated
ENT Exam
ENT Exam: EOMI, pharynx normal, neck supple and normocephalic
Eye Exam
Eye Exam: PERRL, cornea clear, conjunctiva normal and other (Left eye is deviated. Patient has had retinal detachment)
Cardiovascular Exam
Cardiovascular Exam: regular rate/rhythm, no edema, no murmur and normal peripheral pulses
Pulmonary Exam
Pulmonary Exam: lungs clear, no respiratory distress, no rales, no crackles, no rhonchi, no stridor, no wheezing and no cough
Gastrointestinal Exam
Gastrointestinal Exam: normal bowel sounds, non tender, soft, no organomegaly, no pulsatile mass and non distended
Neurological Exam
Neurological Exam: alert, oriented x3, no motor deficits and speech normal
Musculoskeletal Exam
Musculoskeletal Exam: full ROM and no edema
Skin Exam
Skin Exam: normal color, warm/dry, no rash and no petechia
Psychiatric Exam
Psychiatric Exam: normal mood/affect
Course
Orders/Labs/Results
Orders:
Orders
01/01/24 01:35
IV Insert/Care/Rem.- Treatment PRN
01/01/24 02:09
CT Head W/o Iv Contrast Urgent
Comment:
Reason For Exam: dizziness
01/01/24 02:15
EKG [Electrocardiogram (*1)] Urgent
Reason for Study: Vertigo / Dizzy
EKG- Treatment ONCE
01/01/24 02:26
Complete Blood Count/With Diff Urgent
Comprehensive Metabolic Panel Urgent
Lipase Urgent
01/01/24 02:44
Ondansetron Injectable [Zofran] 4 mg .ROUTE .STK-MED ONE
01/01/24 02:49
Ondansetron Injectable [Zofran] 4 mg IV NOW STA
01/01/24 03:30
CR Chest - 2 Views Urgent
Comment:
Reason For Exam: hypoxia
01/01/24 05:08
Ipratropium/Albuterol Sulfate [Duoneb] 3 ml INH R NOW ONE
Abnormal Lab Results
01/01/24 01/01/24
02:04 02:26
MCV 79.9 L fL
(81.0-99.0)
MCH 26.5 L pg
(27.0-31.0)
Absolute Neuts (auto) 7.4 H 10^3/uL
(1.4-6.5)
Absolute Lymphs (auto) 1.0 L 10^3/uL
(1.2-3.4)
Neutrophils % 81.7 H %
(42.2-75.2)
Lymphocytes % 11.4 L %
(20.5-51.1)
Creatinine 0.5 L mg/dL
(0.6-1.0)
Glucose 140 H mg/dl
(70-99)
Calcium 10.3 H mg/dl
(8.4-10.2)
POC Glucose 141 H mg/dl
(70-99)
01/01/24 02:26
01/01/24 02:26
Vital Signs
Initial and Last Documented VS:
Initial Vital Signs
Temp Pulse Resp BP Pulse Ox
98.1 F 86 20 131/91 93
01/01/24 01:29 01/01/24 01:29 01/01/24 01:29 01/01/24 01:29 01/01/24 01:29
Last Documented Vital Signs
Temp Pulse Resp BP Pulse Ox
98.1 F 82 13 109/66 94
01/01/24 01:29 01/01/24 05:00 01/01/24 05:00 01/01/24 04:00 01/01/24 05:00
*Critical Care Note
Total Time (30-74mins, 75-104mins- exclusive of procedures): Not Applicable
Update Note
Update Note:
CT head
IMPRESSION:
No intracranial hemorrhage or midline shift.
Densely calcified right anterior falcine meningioma measuring 1.3 x 1.5 x 1.6 cm.
Chronic appearing infarct left cerebellum.
Diffuse atrophy with ventriculomegaly.
Minor scattered ethmoid sinus mucosal thickening.
01/01/2024 0508 AM: Patient has some desaturation of oxygen. Will try DuoNeb
01/01/2024 0536 AM: DuoNeb showed slight improvement. Patient still hypoxic. At this point x-ray is negative. Patient to be brought into the hospital for continued observation. I discussed this with hospitalist who is in agreement. Patient to be
admitted for hypoxia and weakness.
ED Attending Note
-
Portions of this chart may have been created with voice recognition software.� Occasional wrong word or��sound alike� substitutions may have occurred due to the inherent limitations of voice recognition software.
Discharge Plan
Departure
Patient Disposition: Admit
Date of Disposition: 01/01/24
Time of Disposition: 05:37
Admit to: Telemetry
Presentation/result/management discussed w/ accepting MD/DO: Hospitalist
Discharge Problem:
Hypoxia, Weakness
Prescriptions:
No Action
valsartan-hydrochlorothiazide [Diovan HCT] 320-25 mg Tablet
1 tab PO DAILY@1600
Hold Instructions: Restart when blood pressure greater than 140/90
Jardiance 25 mg Tablet
25 mg PO QPM
Trulicity 0.75 mg/0.5 mL Pen Injector
0.75 mg SC SA@1800
Gemtesa 75 mg Tablet
75 mg PO HS
pravastatin 10 mg Tablet
10 mg PO HS
cyanocobalamin (vitamin B-12) 1,000 mcg Tablet
1,000 mcg PO DAILY
amlodipine 5 mg Tablet
5 mg PO DAILY
aspirin 81 mg Tablet,Delayed Release (Dr/Ec)
81 mg PO DAILY@1500
acetaminophen [Tylenol Extra Strength] 500 mg Tablet
1,000 mg PO QID PRN (Reason: mild pain)
cholecalciferol (vitamin D3) 125 mcg (5,000 unit) Capsule
125 mcg PO DAILY
paroxetine HCl 25 mg Tablet Extended Release 24 Hr
25 mg PO DAILY
cholestyramine (with sugar) 4 gram Powder In Packet
1 ea PO DAILY Qty: 60 0RF
dicyclomine 20 mg Tablet
20 mg PO TID Qty: 90 0RF
diphenoxylate-atropine 2.5-0.025 mg Tablet
1 tab PO Q6HPRN PRN (Reason: diarrhea) Qty: 20 0RF
Referrals:
Stacey Abbasi, DO [Family Provider] -
Interventions
Interventions:
*Risk Screen - Suicide Last Done: 01/01/24 01:29
*General Assessment Last Done: 01/01/24 01:29
*Neglect/Abuse Screening Last Done: 01/01/24 01:29
ED- Fall Risk Assessment Last Done: 01/01/24 01:29
*ED COVID-19 Vaccine History Last Done: 01/01/24 01:29
DT-Xqkfih-Llhnejxobh Assessment Last Done: 01/01/24 02:20
Discharge Date and Time
Print Language: MACEDONIAN
[2024-01-01 02:55] LABS: % Basophils 0.3 % (0-2); % Immature Granulocytes 0.3 % (0-0.5); % Lymphocytes 11.4 % (20.5-51.1); % Monocytes 5.3 % (1.7-9.3); % Neutrophils 81.7 % (42.2-75.2); Absolute Eosinophils 0.1 10^3/uL (0-0.7); Absolute Monocytes 0.5 10^3/uL (0.1-0.6); Absolute Neutrophils 7.4 10^3/uL (1.4-6.5); Hematocrit 37.7 % (37.0-47.0); Hemoglobin 12.5 g/dL (12.0-16.0); Mean Corp Hgb Conc. 33.2 g/dL (33.0-37.0); Mean Corpuscular Hgb 26.5 pg (27.0-31.0); Mean Corpuscular Volume 79.9 fL (81.0-99.0); Mean Platelet Volume 9.2 fL (7.4-10.4); Nucleated Red Blood Cells % 0 %; Platelet Count 292 10^3/uL (130-400); Red Blood Cell Count 4.72 10^6/uL (4.20-5.40); Red Cell Dist. Width 14.3 % (11.5-14.5)
[2024-01-01 03:10] LABS: ALT (SGPT) 14 U/L (0-35); AST (SGOT) 19 U/L (14-36); Albumin 4.4 g/dl (3.5-5.0); Alkaline Phosphatase 98 U/L (38-126); Blood Urea Nitrogen 17 mg/dl (7-17); Calcium 10.3 mg/dl (8.4-10.2); Carbon Dioxide 26 mmol/L (22-30); Chloride 105 mmol/L (98-107); Glucose 140 mg/dl (70-99); Lipase 52 U/L (23-300); Potassium 3.5 mmol/L (3.5-5.1); Sodium 143 mmol/L (135-145); Total Bilirubin 0.5 mg/dl (0.2-1.3); Total Protein 7.2 g/dl (6.3-8.2); eGFR > 60.00
[2024-01-01] MEDS: DUONEB 3 ML INH (05:23)
--- NOTE | 2024-01-01 05:57 | HPS.HSE ---
Addendum entered and electronically signed by Wilian Ardon MD 01/01/24 06:19:
Pul consult: for acute hypoxia of unclear ACUTE etiology.
Former smoker.
HX CAMILLE wear CPAP night
Original Note:
Family Physician
-
Family Physician: Stacey Abbasi
Chief Complaint
-
episode of dizziness and one episode of diarrhea.
History of Present Illness
68F HX HTN, T2IDDM, HLD @, BiB Family DC ' 3 days ago with PDX of Acute on chronic diarrhea, Lactose intolerance, recent history of H. pylori retured to ER for episode of dizziness and one episode of diarrhea.
Associated abdominal pain. Denied vomiting
At ER:
Desat to 87 % on RA
NEG XR for PNA
Somewhat improved with DuoNeb
POx improved to 97 on 2 L
Medical History
Past Medical History
Past Medical History: Reports Other (HTN, NIDDM)
Additional Past Medical History:
Lactose intolerence ,chr dirrhea
Past Surgical History: Reports Orthopedic and Urological
Social History
Tobacco: Non-smoker
Alcohol: None
Family History
Family History: Not pertinent
Allergies / Home Medications
Allergies reflects when Allergies were last updated in [employer]
Home Medications with original date entered in [employer]
Allergy/Medication List:
Allergies
Allergy/AdvReac Type Severity Reaction Status Date / Time
Penicillins Allergy racing Verified 10/09/21 21:02
heart
Home Medications
amlodipine 10 mg tablet (Norvasc) 5 mg PO DAILY Blood pressure 01/17/22
aspirin 81 mg capsule 81 mg PO DAILY Blood clot prevention/tx 01/17/22
paroxetine HCl 25 mg tablet,extended release 24 hr (Paxil CR) 25 mg PO DAILY Depression 01/17/22
valsartan 320 mg-hydrochlorothiazide 25 mg tablet (Diovan HCT) 1 tab PO DAILY@1600 Blood pressure 01/17/22
dulaglutide 0.75 mg/0.5 mL subcutaneous pen injector (Trulicity) 0.75 mg SC QWEEK 12/12/23
empagliflozin 25 mg tablet (Jardiance) 25 mg PO DAILY 12/12/23
vibegron 75 mg tablet (Gemtesa) 75 mg PO DAILY 12/12/23
pravastatin 10 mg tablet 10 mg PO HS 12/24/23
Review of Systems
-
History Source: Patient
A 12 point ROS was completed and negative except as noted: Yes
Constitutional: Reports No Symptoms
EENT: Reports No Symptoms
Respiratory: Reports See HPI
Cardiac: Reports No Symptoms
Abdomen/GI: Reports Abdominal Pain and Diarrhea (chronic )
: Reports No Symptoms
Musculoskeletal: Reports No Symptoms
Skin: Reports No Symptoms
Neurological: Reports No Symptoms
Endocrine: Reports No Symptoms
Hematologic/Lymphatic: Reports No Symptoms
Psych: Reports No Symptoms
Physical Exam
Vital Signs
Vital Signs
Temp Pulse Resp BP Pulse Ox
98.1 F 82 13 109/66 94
01/01/24 01:29 01/01/24 05:00 01/01/24 05:00 01/01/24 04:00 01/01/24 05:00
Physical Exam
General: No Apparent Distress, Conversant and Obese
HEENT: PERRLA
Respiratory: Clear and Other (symetric decresd AE ); No Wheezes
Cardiac: S1/S2 and Regular Rhythm
GI: Soft and Other (mildly tender upper quadrant, no rebound or guarding )
Musculoskeletal: No Edema
Skin: Warm and Dry; No Rash
Neuro: AO x 3
Psych: Calm
Laboratory Results
-
01/01/24 02:26
01/01/24 02:26
Laboratory Results
Total Bilirubin 0.5 mg/dl (0.2-1.3) 06/23/24 02:26
AST 19 U/L (14-36) 01/01/24 02:26
ALT 14 U/L (0-35) 01/01/24 02:26
Alkaline Phosphatase 98 U/L (38-126) 01/01/24 02:26
Lipase 52 U/L (23-300) 01/01/24 02:26
Data Reviewed
-
Diagnostic Radiology: Discussed with Physician
CT Scan: Report Reviewed by me
Lab Data: Labs Reviewed by me
Old Records: Reviewed
Impression/Plan
-
Reviewed VS: BP 110/65 RR 13 POx 87 on RA 97 on 2 L
Data
WCC 9
Hgb 12.5 MCV 79
Unremarkable CMP
HCT
No ICH
Densely calcified Rt falcine meningioma
Chr lt cerebella infarct
12/12/23 CT AP W Iv Cont
No significant acute abnormality identified in the abdomen or pelvis, as described above.
12/28/23 Colonoscope
Diverticulosis in the sigmoid colon.
Three 2 mm polyps in the transverse colon, at the hepatic flexure and in the ascending colon,
EKG report
SINUS RHYTHM WITH 1ST DEGREE A-V BLOCK
LEFT ANTERIOR FASCICULAR BLOCK
MINIMAL VOLTAGE CRITERIA FOR LVH, MAY BE NORMAL VARIANT ( [employer] product )
ABNORMAL ECG
WHEN COMPARED WITH ECG OF 17-JAN-2022 09:55,
PREMATURE VENTRICULAR COMPLEXES ARE NO LONGER PRESENT
BORDERLINE CRITERIA FOR ANTEROSEPTAL INFARCT ARE NO LONGER PRESENT
Last hospitalist admission: -12/28/23 P DX:
Acute on chronic diarrhea
Lactose intolerance
Recent history of H. pylori
ASSESSMENT & PLAN
Pending Rx reconciliation
Acute hypoxic RI need O2 support
Unremarkable CXR
No clinical broncho spasm
Remote HX of former smoker
- wean O2 as able
- Neb PRN
- check D Dimer
HX CAMILLE
Normal and stable CO2 in mid 20s
- wear CPAP HS
Abdominal pain and one episode of diarrhea
Known chronic diarrhea due to Lactose intolerance
Recent history of H. pylori
- IVF
- cont. Dicyclomine and Cholestyramine
Acute dizziness : NEG HCT
Suspect due to symptomatic hypotension
Relative hypotension
Essential HTN
- BP 100's in ER and patient did not take evening Diovan/HCTZ
- hold home amlodipine and Diovan HCTZ for now
- IV NS 1 L
- Ortho VSS
- fall precaution
NIDDM
-hold [employer] Jardiance
-DM diet
-ISS
DVT Px: SQH
Code: Full
IP TLM
[2024-01-01 09:06] LABS: Glucose - Point of Care 113 mg/dl (70-99)
[2024-01-01] MEDS: HEPARIN 5000 UNITS SC ×2 (09:53→20:22)
[2024-01-01] MEDS: QUESTRAN 4 GRAM PO (09:53)
[2024-01-01] MEDS: NSS 1000 IV (09:54)
[2024-01-01 11:44] LABS: Glucose - Point of Care 155 mg/dl (70-99)
--- NOTE | 2024-01-01 11:55 | W.PN.UPDATE ---
Update Note
Progress Note Update
Nonbillable note.
68-year-old female with a history of hypertension, chronic diarrhea, recent colonoscopy,CAMILLE came with dizziness and 1 episode of diarrhea. Gentle hydration. No need for stool studies at this time. If develop frequent episodes of diarrhea then
will get stool studies. Monitor orthostatics. Check abdomen x-ray.Mild hypercalcemia, monitor. Mildly hypoxic in the ED, suspect atelectasis. Start IS. Does have history of CAMILLE, on CPAP.
General: No Apparent Distress, Conversant
HEENT: PERRLA
Respiratory: Clear to auscultation, no wheezing
Cardiac: S1/S2 and Regular Rhythm
GI: Soft, mild epigastric discomfort
Musculoskeletal: No Edema
Skin: Warm and Dry; No Rash
Neuro: AO x 3
Psych: Calm
[2024-01-01] MEDS: TYLENOL 650 MG PO (12:52)
--- NOTE | 2024-01-01 15:10 | CON.PUL ---
Consultation
Consultation Request
Date/Time Consultation Requested: 01-01-24
Date/Time Consultation Performed: 01-01-24
Requesting Provider: Hospitalist Mason
Performing Provider: Dr Kumar
Reason for Consultation: hypoxia
Medical History
-
Chief Complaint: reported POx 87% on RA at ER adm
History of Present Illness:
Mrs Eloise De La Fuente is a 68/W readm early 12-31 with dizziness and persistent diarrhea associated with abd pain (adm DH 12-23 to for acute on chronic diarrhea).
At ER, POx 87% on RA, but no fever or resp distress but low normal BP.
Negative orthostatism at [facility] this afternoon as d/w RN, was started on IVFs at ER.
Denies CP, HERNANDEZ, fever, dyspnea, cough. At time of visit, in no resp distress at rest and O2 2L (not on home O2 but on CPAP s/O2 for CAMILLE).
Remote h/o, not on BDs. Follows [facility]
Past Medical History
Past Medical History: Other (see A&P for PMH/PSH)
Social History
Tobacco: Non-smoker
Alcohol: None
Drug: None
Personal: Single
Living: Alone
Employment: Not Employed
Family History
Family History: Reviewed & Not Pertinent
Allergies / Home Medications
Allergies
Allergy/AdvReac Type Severity Reaction Status Date / Time
Penicillins Allergy racing Verified 01/01/24 01:34
heart
Home Medications
�Medication �Instructions �Recorded �Confirmed �Last Taken �Type
valsartan 320 1 tab PO DAILY@1600 Blood pressure 01/17/22 01/01/24 12/31/23 History
mg-hydrochlorothiazide 25 mg
tablet (Diovan HCT)
dulaglutide 0.75 mg/0.5 mL 0.75 mg SC SA@1800 Diabetes 12/12/23 01/01/24 12/24/23 History
subcutaneous pen injector
(Trulicity)
empagliflozin 25 mg tablet 25 mg PO QPM Diabetes 12/12/23 01/01/24 12/31/23 History
(Jardiance)
vibegron 75 mg tablet (Gemtesa) 75 mg PO HS Urinary Issue 12/12/23 01/01/24 12/31/23 History
acetaminophen 500 mg tablet 1,000 mg PO QID PRN mild pain 12/24/23 01/01/24 12/31/23 History
(Tylenol Extra Strength)
amlodipine 5 mg tablet 5 mg PO DAILY Blood Pressure 12/24/23 01/01/24 12/31/23 History
aspirin 81 mg tablet,delayed 81 mg PO DAILY@1500 Blood Clot 12/24/23 01/01/24 12/31/23 History
release Prevention/Tx
cholecalciferol (vitamin D3) 125 125 mcg PO DAILY Supplement 12/24/23 01/01/24 12/31/23 History
mcg (5,000 unit) capsule
cyanocobalamin (vitamin B-12) 1,000 mcg PO DAILY Supplement 12/24/23 01/01/24 12/31/23 History
1,000 mcg tablet
paroxetine HCl 25 mg 25 mg PO DAILY Mental Health 12/24/23 01/01/24 12/31/23 History
tablet,extended release 24 hr
pravastatin 10 mg tablet 10 mg PO HS High Cholesterol 12/24/23 01/01/24 12/31/23 History
cholestyramine (with sugar) 4 gram 1 ea PO DAILY #60 ea 12/28/23 01/01/24 12/31/23 Rx
powder for susp in a packet
dicyclomine 20 mg tablet 20 mg PO TID #90 tabs 12/28/23 01/01/24 Unknown Rx
diphenoxylate-atropine 2.5 1 tab PO Q6HPRN PRN diarrhea #20 12/28/23 01/01/24 12/31/23 Rx
mg-0.025 mg tablet tabs
Review of Systems
-
History Source: Patient
All other systems: Negative unless noted
Abdomen/GI: Abdominal Pain and Diarrhea (mild)
Neuro: Dizzy
Vitals / Labs / Diagnostic Testing
Vital Signs
Temp Pulse Resp BP Pulse Ox
99.1 F 70 14 95/45 93
01/01/24 14:54 01/01/24 14:54 01/01/24 14:54 01/01/24 14:54 01/01/24 14:54
Lab Data
01/01/24 02:26
01/01/24 02:26
Diagnostic Testing:
Physical Exam
-
HEENT: Normocephalic, Moist Mucous Membranes and Thrush (n)
Cardiovascular: Regular Rhythm, Murmur (n), Peripheral Edema (n) and JVD (n)
Respiratory: Rhonchi (trace) and Non-Labored Respirations
GI: Soft, Non Distended, Non Tender and Normal Bowel Sounds
Neurology: Awake, AO x 3 and No Motor Deficits
Skin: Warm
General: Respiratory Distress (n)
Assessment
-
Assessment:
Mrs Eloise De La Fuente is a 68/W readm early 12-31 with dizziness and persistent diarrhea associated with abd pain (adm 12-23 to for acute on chronic diarrhea). At ER, POx 87% on RA, but no fever or resp distress but low normal BP. Negative
orthostatism at [facility] this afternoon as d/w RN. Denies CP, HERNANDEZ, fever, dyspnea, cough. In no resp distress at rest and O2 2L (not on home O2 but on CPAP s/O2 for CAMILLE). Remote h/o, not on BDs. Follows [facility]
Impression:
Hypoxemia on RA
Mild chronic diarrhea
Conditions INFANT TEACHER:
HTN
T2DM
Chronic diarrhea, for about 3 y INFANT TEACHER, s/p H pylori rx for 3 m INFANT TEACHER with some relief. Adm 12-23 to 24, seen by GI, colonoscopy 12-27 with sigmoid diverticulitis, 2 mm size polyps biopsies, otherwise normal colon.
CAMILLE on CPAP s O2
Low thoracic and lumbar scoliosis
Nonsmoker
Plan:
POx 87% on RA at ER
Not on home O2, remote h/o smoking, not on BDs at home
Currently on O2 2L, POx 95% at rest, speaking in full sentences
Keep asp precs
CXR on adm, no comparison films. Lower thoracic and lumbar scoliosis. No pulm infiltrates
Unexplained hypoxemia with no dyspnea or other cardioresp symptoms on adm
Potentially due to underlying COPD, lower thoracic/L scoliosis, basilar atelectasis, dehydration at time of adm
No orthostatism at [facility] as d/w RN (started IVFs at ER)
No bronchospasm, CP, presyncopal event
Low prob Wells score for DVT and for PE
CLAUDIO doppler in AM for completeness
Continue DNs prn
Observe off systemic CSs
Continue outpatient CPAP
Follow with [facility]
Continue DVT proph
D/w Mrs De La Fuente, all questions answered
[2024-01-01 16:35] LABS: Glucose - Point of Care 96 mg/dl (70-99)
[2024-01-01] MEDS: ASPIR LOW (ENTERIC COATED) 81 MG PO (16:43)
[2024-01-01] MEDS: PRAVACHOL 10 MG PO (20:22)
[2024-01-01] MEDS: DETROL LA 4 MG PO (20:22)
[2024-01-01 21:01] LABS: Glucose - Point of Care 117 mg/dl (70-99)
[2024-01-02] VITALS (8 sets, daily range): BP systolic 123–151; BP diastolic 65–81; PULSE 60–84
[2024-01-02 07:34] LABS: Glucose - Point of Care 108 mg/dl (70-99)
[2024-01-02 07:50] LABS: Hematocrit 37.1 % (37.0-47.0); Hemoglobin 11.4 g/dL (12.0-16.0); Mean Corp Hgb Conc. 30.7 g/dL (33.0-37.0); Mean Corpuscular Hgb 26.2 pg (27.0-31.0); Mean Corpuscular Volume 85.3 fL (81.0-99.0); Mean Platelet Volume 9.2 fL (7.4-10.4); Platelet Count 271 10^3/uL (130-400); Red Blood Cell Count 4.35 10^6/uL (4.20-5.40); Red Cell Dist. Width 14.5 % (11.5-14.5)
[2024-01-02 08:26] LABS: Blood Urea Nitrogen 15 mg/dl (7-17); Calcium 9.9 mg/dl (8.4-10.2); Carbon Dioxide 27 mmol/L (22-30); Chloride 106 mmol/L (98-107); Glucose 97 mg/dl (70-99); Potassium 3.8 mmol/L (3.5-5.1); Sodium 142 mmol/L (135-145); eGFR > 60.00
[2024-01-02] MEDS: QUESTRAN 4 GRAM PO (09:02)
[2024-01-02] MEDS: PAXIL 20 MG PO (09:03)
[2024-01-02] MEDS: HEPARIN 5000 UNITS SC ×2 (09:03→21:16)
[2024-01-02 11:43] LABS: Glucose - Point of Care 100 mg/dl (70-99)
[2024-01-02] MEDS: TYLENOL 650 MG PO (12:03)
--- NOTE | 2024-01-02 13:44 | W.PN.HOSP.TC ---
Today's Communication/Plan
-
see note above
Assessment / Plan
Assessment / Plan
Acute episode of dizziness-based on her description more of vertigo which was associated with nausea vomiting and she had 1 loose stool. She had associated racing of the heart so got concerned and called 911. She does have still symptoms of
vertigo especially if she moves her head. Currently no nystagmus or focal neurological deficit. 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
No ataxia or limb weakness currently.
Patient denies any prior history of stroke.
Eval for post circulation stroke.Known diabetic ,HTN,hyperlipidemia
EKG in sinus rhythm;monitor without arrhythmia.
MRI brain.
cw aspirin
Check lipid profile.
Check orthostatic BP
Recent acute diarrhea-evaluation including colonoscopy noted. Patient currently with 2 bowel movements per day. Continue with her Questran.
Diabetes mellitus-continue insulin sliding scale insulin. Check hemoglobin A1c
Hypertension-continue with amlodipine.
Transient hypoxia-pulmonary input noted. Currently not hypoxic. Off of oxygen. No evidence of pneumonia. D-dimer is negative. Ultrasound of the legs negative for DVT. Doubt PE. Patient known to have sleep apnea and uses CPAP. Continue to
follow.
Total time spent on today's encounter was 52 minutes which included time spent in counseling the patient/family regarding diagnosis and treatment plan as listed above, goals of care, and symptom management. Case was discussed with nursing staff,
specialists, and care coordinators/case management. All labs and imaging personally reviewed by me. Remainder the time spent in detailed review of previous records, lab data, imaging, and other medical provider documentation.
Anticipated Discharge: 24 - 48 hours
Subjective/Interval History
-
Date of Service: January 02, 2024
Patient still feels dizzy today. No nausea or vomiting.
She had 2 loose stools.
Since discharge last Tuesday after workup for diarrhea she was doing okay then on Tuesday she felt acutely dizzy and felt things were spinning around her. She had remotely vertigo once but this was different. She felt nauseous , she threw up
once. She had 1 loose bowel movement and she felt her heart was racing so she called 911.
She seems to have the spinning feeling with movement of head especially if she puts her head down and lift up. No headache. No limb weakness or tingling numbness in the hands or legs. Denies any prior history of stroke. No ear pain or
tinnitus.No double vision.
Prior to discharge she had multiple loose stools; since discharge she was having loose to soft semisolid stools up to 2/day. The frequency definitely has come down.
Objective Data
-
Labs:
Laboratory Results
01/02/24
07:20
WBC 5.0
Hgb 11.4 L
Hct 37.1
Plt Count 271
Sodium 142
Potassium 3.8
Chloride 106
Carbon Dioxide 27
BUN 15
Creatinine 0.5 L
Glucose 97
Calcium 9.9
Vital Signs:
Vital Signs
Temp Pulse Resp BP Pulse Ox
97.8 F 55 20 149/72 97
01/02/24 11:32 01/02/24 11:32 01/02/24 11:32 01/02/24 11:32 01/02/24 11:32
I&O
01/01/24 01/02/24 01/03/24
06:59 06:59 06:59
Intake Total 980 / 980
Output Total 200 / 200
Balance 780 / 780
Review of Systems
-
Constitutional: Denies Fever
Respiratory: Denies Trouble Breathing
Cardiac: Denies Chest Pain
Abdomen/GI: Denies Abdominal Pain, Nausea or Vomiting
Neuro: Reports Dizzy
Physical Exam
-
General: No Apparent Distress
HEENT: Moist Mucous Membranes
Respiratory: Clear to Auscultation
Cardiac: Regular Rhythm and S1/S2; Negative Tachycardic
GI: Soft, Nontender, Nondistended and Normal Bowel Sounds
Neuro: AO x 3 and No Motor Deficits; Negative Tremors, Slurred Speech, Facial Droop or Other (No nystagmus; no past pointing; no ataxia)
Psych: Calm; Negative Confused or Agitated
Data Reviewed
-
Labs: Labs Reviewed by me
[2024-01-02 14:39] LABS: HDL Cholesterol 32 mg/dl; LDL Cholesterol, Calculated 41 mg/dl; Total Cholesterol 98 mg/dl (50-199); Triglyceride 127 mg/dl (10-149); Very Low Density Lipoprotein 25 mg/dl (0-30)
[2024-01-02] MEDS: ASPIR LOW (ENTERIC COATED) 81 MG PO (15:12)
[2024-01-02] MEDS: DIOVAN 320 MG PO (15:13)
[2024-01-02] MEDS: ORETIC 25 MG PO (15:13)
[2024-01-02 15:17] LABS: Glucose - Point of Care 100 mg/dl (70-99)
--- NOTE | 2024-01-02 15:22 | CM ---
Patient seen bedside, initial assessment completed. Patient resides alone in an apartment on the sixth floor, with elevator. Patient denies VN or SNF, has a cane and shower chair at home, CPAP through [email or web address]. Patient confirms PCP Dr. Abbasi,
pharmacy [facility] in [place], confirms prescription coverage. Patient reports some food insecurities at the end of the month. Provided advance directive paperwork and resources from [email or web address] for food insecurities. CM will continue to follow
for all discharge planning needs.
Plan; home no needs anticipated.
--- NOTE | 2024-01-02 15:38 | W.PN.PUL3 ---
Today's Communication / Plan
-
Continue evaluation for vertigo per primary team
No additional pulmonary recommendation
Outpatient pulmonary follow-up with Dr. Soni
Sign off
Assessment
-
Assessment:
Mrs Eloise De La Fuente is a 68/W readm early 12-31 with dizziness and persistent diarrhea associated with abd pain (adm 12-23 to for acute on chronic diarrhea). At ER, POx 87% on RA, but no fever or resp distress but low normal BP. Negative
orthostatism at [facility] this afternoon as d/w RN. Denies CP, HERNANDEZ, fever, dyspnea, cough. In no resp distress at rest and O2 2L (not on home O2 but on CPAP s/O2 for CAMILLE). Remote h/o, not on BDs. Follows [facility]
Impression:
Hypoxemia on RA
Mild chronic diarrhea
Conditions [employer]:
HTN
T2DM
Chronic diarrhea, for about 3 y [employer], s/p H pylori rx for 3 m [employer] with some relief. Adm 12-23 to '24, seen by GI, colonoscopy 12-27 with sigmoid diverticulitis, 2 mm size polyps biopsies, otherwise normal colon.
CAMILLE on CPAP s O2
Low thoracic and lumbar scoliosis
Nonsmoker
Plan:
Transient hypoxemia-not resolved. Possibly subsegmental atelectasis.
Unexplained hypoxemia with no dyspnea or other cardioresp symptoms on adm
Potentially due to underlying ??COPD, lower thoracic/L scoliosis, basilar atelectasis, dehydration at time of adm
No acute respiratory complaints
Chest x-ray without infiltrate
Negative D-dimer
Lower extremity Dopplers negative
-
Encourage incentive spirometry
Ambulate as able-limited due to vertigo.
-
Recommend continue outpatient pulmonary follow-up in our office with Dr. Soni.
No prior reports of COPD. There is report of mild intermittent asthma. Currently stable.
Does have some cystic structures on CT abdomen pelvis lung cuts. Can be evaluated in the outpatient setting.
-
Continue CPAP nocturnally as able.
-
Vertigo: Evaluation per primary team.
Follow with Dr. Nae CARR in the next several weeks.
Continue DVT proph
No additional recommendation from the pulmonary perspective.
At this point I will sign off.
Please call with questions.
Subjective Data
-
Date of Service:
Date of Service: January 02, 2024
Chief Complaint: Pulmonary Follow Up (Hypoxemia)
Subjective:
No new pulmonary complaints
Oxygen has been weaned off
Review of Systems
General: Fever (n)
Cardiopulmonary: Dyspnea (n) and Dyspnea on Exertion (n)
GI: Abdominal Pain (n)
Objective Data
Data Reviewed
Vital Signs / I&O / Oxygen:
Vital Signs
Temp Pulse Resp BP Pulse Ox
98.3 F 67 20 139/72 93
01/02/24 15:35 01/02/24 15:35 01/02/24 15:35 01/02/24 15:35 01/02/24 15:35
Intake and Output
01/01/24 01/02/24 01/03/24
06:59 06:59 06:59
Intake Total 980 / 980
Output Total 200 / 200
Balance 780 / 780
SaO2 93
Nasal Cannula flow liters per 1
minute
Physical Exam
General: Respiratory Distress (n) and Comfortable
HEENT: Normocephalic
Cardiovascular: S1-S2
Respiratory: Non-Labored Respirations
GI: Soft and Non Distended
Neurology: Awake and Alert
Skin: Warm
Labs/Micro/Reports
Lab Data
01/02/24 07:20
01/02/24 07:20
[2024-01-02] MEDS: JARDIANCE 25 MG PO (17:51)
[2024-01-02 21:02] LABS: Hepatitis C Antibody Negative (Negative)
[2024-01-02] MEDS: PRAVACHOL 10 MG PO (21:16)
[2024-01-02] MEDS: DETROL LA 4 MG PO (21:16)
[2024-01-02 21:35] LABS: Glucose - Point of Care 98 mg/dl (70-99)
[2024-01-03] VITALS (7 sets, daily range): BP systolic 114–170; BP diastolic 68–95; PULSE 67–98
[2024-01-03 06:59] LABS: Glucose - Point of Care 87 mg/dl (70-99)
[2024-01-03 08:22] LABS: Blood Urea Nitrogen 11 mg/dl (7-17); Calcium 10.2 mg/dl (8.4-10.2); Carbon Dioxide 30 mmol/L (22-30); Chloride 103 mmol/L (98-107); Glucose 96 mg/dl (70-99); Potassium 3.8 mmol/L (3.5-5.1); Sodium 141 mmol/L (135-145); eGFR > 60.00
[2024-01-03] MEDS: PAXIL 20 MG PO (09:08)
[2024-01-03] MEDS: QUESTRAN 4 GRAM PO (09:08)
[2024-01-03] MEDS: ORETIC 25 MG PO (09:09)
[2024-01-03] MEDS: NORVASC 5 MG PO (09:09)
[2024-01-03] MEDS: DIOVAN 320 MG PO (09:09)
[2024-01-03] MEDS: HEPARIN 5000 UNITS SC ×2 (09:11→21:30)
[2024-01-03 09:30] LABS: Glycohemoglobin (HgbA1c) 6.5 % (4.0-5.6)
[2024-01-03] MEDS: NSS (PRESERVATIVE FREE) 0.125 ML IV (11:48)
[2024-01-03] MEDS: ATIVAN 0.25 MG IV (11:48)
--- NOTE | 2024-01-03 11:52 | CON.NEURO4 ---
Consultation - Neurology 4
-
CONSULTING PHYSICIAN: Cristiano Banuelos MD (Neurology)
REFERRING PHYSICIAN: Hospitalist
DICTATED BY: Cristiano Banuelos
DATE/TIME OF REQUEST: 01/03/2024
DATE/TIME OF CONSULTATION: 01/03/2024 1200
Reason for Consultation: Dizziness
History of Present Illness:
This is a 68 year old right handed female who has presented to the hospital with dizziness and shortness of breath. 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 She
had multiple ER visits. First visit was in December 10. Second visit was December 23 when she was admitted for a few days for diarrhea. She was discharged on December 27
On December 31 she returned to ED c/o dizziness and difficulty catching her breath. Her dizziness was described as room spinning and unsteadiness with change in position.
No new visual impairment focal weakness or numbness of face or extremities. No slurred speech, loss of balance or incoordination or gait impairment.
No loss of hearing or tinnitus
No LOC or seizures
Past Medical History: HTN, NIDDM
Surgical History: Knee, Nephrectomy, Bladder
Family History: NC
Social History: Lives at home. Does not smoke or use alcohol
Allergies: PCN
Home Medications: amlodipine 10 mg tablet (Norvasc) 5 mg PO DAILY Blood pressure 01/17/22
aspirin 81 mg capsule 81 mg PO DAILY Blood clot prevention/tx 01/17/22
paroxetine HCl 25 mg tablet,extended release 24 hr (Paxil CR) 25 mg PO DAILY Depression 01/17/22
valsartan 320 mg-hydrochlorothiazide 25 mg tablet (Diovan HCT) 1 tab PO DAILY@1600 Blood pressure 01/17/22
dulaglutide 0.75 mg/0.5 mL subcutaneous pen injector (Trulicity) 0.75 mg SC QWEEK 12/12/23
empagliflozin 25 mg tablet (Jardiance) 25 mg PO DAILY 12/12/23
vibegron 75 mg tablet (Gemtesa) 75 mg PO DAILY 12/12/23
pravastatin 10 mg tablet 10 mg PO HS 12/24/23
Review of Symptoms:
Patient denies any fever, headache, chest pain, shortness of breath, GI or symptoms.
�Per the HPI.�All systems are reviewed negative except above.
�-
Vital Signs:
Temp 36.6 C P 83 R20 BP149/81 [id number]
Physical Exam:
The patient is afebrile, heart sounds S1 and S2 are (regular / irregular), and chest is clear to auscultation bilaterally.
Head/Neck: Dysconjugate gaze
Neurologic Examination:
The patient is awake, alert and oriented x 3. (He/She) is able to follow commands and answer questions appropriately. There is no aphasia or dysarthria. On cranial nerve assessment, RIGHT pupil are 3 mm, round and reactive to light and
accommodation. Legally Blind OS.
Visual king are full(R). Extraocular movements are dysconjugate. Facial sensations are intact and bilaterally symmetrical, there is no facial asymmetry. Hearing is intact bilaterally to normal conversation volume. Tongue palate and uvula are
midline. Sternocleidomastoid strengths are full bilaterally. Motor strengths are 5/5 bilateral upper and lower extremities on medical research [place] scale. There is no drift or involuntary movement noted. Deep tendon reflexes are 2+ bilateral
upper and lower extremities and Babinski is absent bilaterally. Sensations of pain, touch, temperature and vibration are intact and bilaterally symmetrical. There was no extinction noted on double simultaneous stimulation. Coordination is intact by
finger to nose bilaterally.
Lab Results: 01/02/24 07:20
01/03/24 07:25
Sodium 141 mmol/L (135-145) 01/03/24 07:25
Potassium 3.8 mmol/L (3.5-5.1) 01/03/24 07:25
BUN 11 mg/dl (7-17) 01/03/24 07:25
Glucose 96 mg/dl (70-99) 01/03/24 07:25
Calcium 10.2 mg/dl (8.4-10.2) 01/03/24 07:25
LDL Cholesterol, Calc 41 mg/dl 01/02/24 07:20
Neuro Imaging: CT/MRI head: Diffuse atrophy. Mild ventriculomegaly suggestive of NPH. Chronic cerebellar infarction (L) and Right frontal meningioma
Impression:
Ms. MARIA DEL ROSARIO BROWN is a 68 year old F who has presented to the hospital with chief complaint of dizziness which is positional and most likely has Benign Positional vertigo with CT/MRI findings of chronic cerebellar infarction(L), Right frontal
meningioma and ventriculomegaly.
Recommendations:
1. Meclizine 12.5 mg TID
2. Vestibular therapy
3. B12 level
4. Ecasa 81 mg daily
Discussed patient care with: Hospitalist
Allergies
-
Allergies
Allergy/AdvReac Type Severity Reaction Status Date / Time
Penicillins Allergy racing Verified 01/01/24 01:34
heart
Vital Signs and Labs
-
Vital Signs and Labs:
Vital Signs
Temp Pulse Resp BP Pulse Ox
36.6 C 83 20 149/81 95
01/03/24 16:05 01/03/24 16:05 01/03/24 16:05 01/03/24 16:05 01/03/24 16:05
Lab Results
01/02/24 07:20
01/03/24 07:25
Sodium 141 mmol/L (135-145) 01/03/24 07:25
Potassium 3.8 mmol/L (3.5-5.1) 01/03/24 07:25
BUN 11 mg/dl (7-17) 01/03/24 07:25
Glucose 96 mg/dl (70-99) 01/03/24 07:25
Calcium 10.2 mg/dl (8.4-10.2) 01/03/24 07:25
LDL Cholesterol, Calc 41 mg/dl 01/02/24 07:20
[2024-01-03 14:22] LABS: Glucose - Point of Care 92 mg/dl (70-99)
[2024-01-03] MEDS: ASPIR LOW (ENTERIC COATED) 81 MG PO (15:21)
[2024-01-03] MEDS: ANTIVERT 12.5 MG PO ×2 (15:21→21:29)
[2024-01-03 15:26] LABS: Glucose - Point of Care 141 mg/dl (70-99)
[2024-01-03] MEDS: JARDIANCE 25 MG PO (18:33)
[2024-01-03] MEDS: DETROL LA 4 MG PO (21:29)
[2024-01-03] MEDS: PRAVACHOL 10 MG PO (21:29)
[2024-01-03 21:39] LABS: Glucose - Point of Care 107 mg/dl (70-99)
[2024-01-04 03:17] VITALS: BP 110/68
[2024-01-04 07:55] LABS: Glucose - Point of Care 94 mg/dl (70-99)
[2024-01-04 07:59] VITALS: BP 138/85
--- NOTE | 2024-01-04 08:36 | W.PN.NEURO.1 ---
Today's Communication / Plan
-
.
Neuro Assessment/Plan
Assessment
This is a 68-year-old right-handed female with a PMH of HTN, HLD, and NIDDM who presented to on 01/01/24 with report of positional dizziness and dyspnea following two hospitalizations for diarrhea this month.
-MRI brain 01/03/24: Mild cerebral atrophy. Old infarct in the left cerebellar hemisphere. No acute MR findings in the head. 1.5 cm right anterior frontal meningioma. This causes mild mass effect on the adjacent right anterior. frontal gyrus.
I. Likely a peripheral vertigo syndrome, possibly BPPV.
II. MRI brain negative for acute stroke, demonstrates an old left cerebellar ischemic stroke.
III. Right frontal meningioma, noncontributory.
Plan
-Continue aspirin 81mg daily indefinitely for stroke prevention given old stroke on MRI brain.
-Supportive care. Okay to continue Meclizine 12.5 mg TID PRN for several days if needed.
-Patient does not drive/have a car.
-Physical therapy evaluation/ outpatient vestibular therapy.
-B12 level pending.
-Provide patient with a stroke education packet.
-LDL goal follow stroke is <70. LDL is 41. Continue home pravastatin 10mg daily as LDL is at goal.
-Goal normoglycemia, hbA1c is 6.5.
-DVT prophylaxis.
-Patient already follows with Neurosurgery Dr. Gamal Chung at [facility] for routine surveillance of known right frontal meningioma.
-Will sign-off. Please contact our Neurology service with any questions/concerns.
Subjective/Objective
Subjective Data
Date of Service: January 04, 2024
No acute events overnight. Patient reports that her spinning sensation has completely resolved. She does feel mildly light-headed with fast position changes still. She denies any headache, vision changes, speech/swallow difficulty, numbness,
weakness, nausea, chest pain, palpitations, and shortness of breath.
Objective Data
Vital Signs
Temp Pulse Resp BP Pulse Ox
98.3 F 63 21 138/85 96
01/04/24 07:59 01/04/24 07:59 01/04/24 07:59 01/04/24 07:59 01/04/24 07:59
Lab Results
01/02/24 07:20
01/03/24 07:25
Sodium 141 mmol/L (135-145) 01/03/24 07:25
Potassium 3.8 mmol/L (3.5-5.1) 01/03/24 07:25
BUN 11 mg/dl (7-17) 01/03/24 07:25
Glucose 96 mg/dl (70-99) 01/03/24 07:25
Calcium 10.2 mg/dl (8.4-10.2) 01/03/24 07:25
LDL Cholesterol, Calc 41 mg/dl 01/02/24 07:20
Patient Allergies
Penicillins Allergy (Verified 01/01/24 01:34)
racing heart
LDL Level: <70, continue statin
Review of Systems
-
History Source: Patient
EENT: Negative Blurry Vision or Decreased Vision
Respiratory: Negative Cough or Trouble Breathing
Cardiac: Negative Chest Pain or Palpitations
Abdomen/GI: Negative Nausea
Neuro: Dizzy (mildly light-headed with fast position changes); Negative Headache, Weakness, Numbness, Ataxia, Tremors or Speech Problem
Physical Exam
-
General: Well Developed, Well Nourished and No Apparent Distress
Eyes: No Ptosis; Negative PERRLA (L pupil hx detached retina/nonreactive)
HEENT: Normocephalic and Atraumatic
Neck: Full Range of Motion
Respiratory: No Dyspnea
GI: Non-distended
Extremities: No Clubbing, No Cyanosis and No Edema
Psych: Unremarkable
Extended Neurological Exam
Mood & Affect: Mood Unremarkable and Affect Unremarkable
Attention Span & Concentration: Awake, Alert, Interactive and No Difficulty with 2 Step Request
Memory: Unremarkable (AAOx3) and Able to Recall
Tremor: Hand Tremor Absent and Head Tremor Absent
Involuntary Movement: None
Speech: Quality Unremarkable, Quantity Unremarkable and Rate of Production Unremarkable
Cranial Nerve II: Left Eye: Pupillary Size Unremarkable, Unreactive and Visual Lucas Reduced (low vision at baseline due to detached retina)
Cranial Nerve II: Right Eye: Pupillary Reactivity Unremarkable, Pupillary Size Unremarkable and Visual Lucas Grossly Intact
Cranial Nerves III, IV, : Extraocular Movement: Extraocular Movement Full in all Directions and Other (left eye exotropia 1+)
Cranial Nerve V: Facial Sensation: Intact to Light Touch
Cranial Nerve VII: Facial Symmetry: Normal Facial Symmetry
Cranial Nerves IX, X: Palate Movement: Palate Elevation Symmetric
Cranial Nerve XI: Shoulder Shrug: Unremarkable
Cranial Nerve XII: Tongue Protusion: Midline
Muscle Strength, Overall: Full Throughout
Muscle Bulk & Tone: Bulk Unremarkable and Tone Unremarkable
Pronator Drift: No Drift in Upper Extremities and No Drift in Lower Extremities
Cold Sensation: Unremarkable
Vibration Sensation: Unremarkable
Touch Sensation: Double Simultaneous Stimulation Unremarkable
Coordination: [id number] Testing Unremarkable
Babinski Sign: Absent Bilaterally
Gait & Station: Up from Seated Without Problem
Data Reviewed
-
CT Head: Report Reviewed and Image Reviewed
MRI Head: Report Reviewed and Image Reviewed
Orthostatic Testing: Report Reviewed
Labs: Report Reviewed
Lipid Profile: Report Reviewed
HgbA1C: Report Reviewed
Reviewed with: Physician and Patient
Medications
-
Active Medications
Generic Name Dose Route Start Last Admin
Trade Name Freq PRN Reason Stop Dose Admin
Acetaminophen 650 mg 01/01/24 09:08 01/02/24 12:03
Acetaminophen 325 Mg Tablet PO 01/29/24 09:07 650 mg
Q4HPRN PRN Administration
mild pain/HERNANDEZ/temp> 100.4F
Albuterol/Ipratropium 3 ml 01/01/24 09:08
Ipratropium 0.5/Albuterol 3 Mg (3 Ml Ampul) INH
R Q4HPRN PRN
for SoB
Protocol
Amlodipine Besylate 5 mg 01/03/24 08:00 01/03/24 09:09
Amlodipine 5 Mg Tablet PO 01/31/24 07:59 5 mg
DAILY CHRISTOPHER Administration
Aspirin 81 mg 01/01/24 15:00 01/03/24 15:21
Aspirin 81 Mg (Enteric Coated) Tablet PO 01/29/24 14:59 81 mg
DAILY@1500 CHRISTOPHER Administration
Bisacodyl 10 mg 01/01/24 09:08
Bisacodyl 10 Mg Rectal Suppository RECTAL 01/29/24 09:07
[id number] PRN
constipation
Cholestyramine Resin 4 gram 01/01/24 09:08 01/03/24 09:08
Cholestyramine 4 Gram Packet PO 01/29/24 09:07 4 gram
DAILY CHRISTOPHER Administration
Dextrose 12.5 grams 01/01/24 11:56
Dextrose 50% (0.5 Grams/Ml) 50 Ml Syringe IV 01/29/24 11:55
[id number] PRN
hypoglycemia
Protocol
Diphenoxylate HCl/Atropine 1 tablet 01/01/24 09:08
Diphenoxylate/Atropine Tablet PO 01/29/24 09:07
Q6HPRN PRN
diarrhea
Empagliflozin 25 mg 01/02/24 18:00 01/03/24 18:33
Empagliflozin (Jardiance) 25 Mg Tablet PO 01/30/24 17:59 25 mg
QPM CHRISTOPHER Administration
Glucagon 1 mg 01/01/24 11:56
Glucagon 1 Mg Vial IM 01/29/24 11:55
PRN PRN
hypoglycemia
Protocol
Heparin Sodium 5,000 units 06/23/24 09:08 01/03/24 21:30
Heparin 5,000 Units/Ml 1 Ml Vial SC 01/29/24 09:07 5,000 units
Q12 CHRISTOPHER Administration
Hydrochlorothiazide 25 mg 01/02/24 15:00 01/03/24 09:09
Hydrochlorothiazide 25 Mg Tablet PO 01/30/24 14:59 25 mg
DAILY CHRISTOPHER Administration
Insulin Aspart 0 units 01/01/24 16:30 01/03/24 15:42
Insulin Aspart Low Resistance 300 Units/3 Ml Pen.Injctr SC 01/29/24 16:29 Not Given
AC CHRISTOPHER
Protocol
Meclizine HCl 12.5 mg 01/03/24 16:00 01/03/24 21:29
Meclizine 12.5 Mg Tablet PO 01/31/24 15:59 12.5 mg
TID CHRISTOPHER Administration
Ondansetron HCl 4 mg 01/01/24 09:08
Ondansetron 4 Mg/2 Ml Vial IV 01/29/24 09:07
Q6HPRN PRN
nausea and vomiting
Paroxetine HCl 20 mg 01/02/24 08:00 01/03/24 09:08
Paroxetine 20 Mg Tablet PO 01/30/24 07:59 20 mg
DAILY CHRISTOPHER Administration
Polyethylene Glycol 17 grams 01/01/24 09:08
Polyethylene Glycol Powder 17 Grams Packet PO 01/29/24 09:07
DAILYPRN PRN
constipation
Pravastatin Sodium 10 mg 01/01/24 22:00 01/03/24 21:29
Pravastatin 10 Mg Tablet PO 01/29/24 21:59 10 mg
HS CHRISTOPHER Administration
Senna/Docusate Sodium 1 tablet 01/01/24 09:08
Docusate W/Senna (Abril-Colace) Tablet PO 01/29/24 09:07
BIDPRN PRN
constipation
Sodium Chloride 0 flush 01/01/24 07:00
Sodium Chloride 0.9% (Flush) Syringe IV 01/29/24 06:59
PER PROTOCOL CHRISTOPHER
Tolterodine Tartrate 4 mg 01/01/24 22:00 01/03/24 21:29
Tolterodine 4 Mg Extended Release Capsule PO 01/29/24 21:59 4 mg
HS CHRISTOPHER Administration
Valsartan 320 mg 01/02/24 15:00 01/03/24 09:09
Valsartan 80 Mg Tablet PO 01/30/24 14:59 320 mg
DAILY CHRISTOPHER Administration
Home Medications
�Medication �Instructions �Recorded
valsartan 320 1 tab PO DAILY@1600 Blood pressure 01/17/22
mg-hydrochlorothiazide 25 mg
tablet (Diovan HCT)
dulaglutide 0.75 mg/0.5 mL 0.75 mg SC SA@1800 Diabetes 12/12/23
subcutaneous pen injector
(Trulicity)
empagliflozin 25 mg tablet 25 mg PO QPM Diabetes 12/12/23
(Jardiance)
vibegron 75 mg tablet (Gemtesa) 75 mg PO HS Urinary Issue 12/12/23
acetaminophen 500 mg tablet 1,000 mg PO QID PRN mild pain 12/24/23
(Tylenol Extra Strength)
amlodipine 5 mg tablet 5 mg PO DAILY Blood Pressure 12/24/23
aspirin 81 mg tablet,delayed 81 mg PO DAILY@1500 Blood Clot 12/24/23
release Prevention/Tx
cholecalciferol (vitamin D3) 125 125 mcg PO DAILY Supplement 12/24/23
mcg (5,000 unit) capsule
cyanocobalamin (vitamin B-12) 1,000 mcg PO DAILY Supplement 12/24/23
1,000 mcg tablet
paroxetine HCl 25 mg 25 mg PO DAILY Mental Health 12/24/23
tablet,extended release 24 hr
pravastatin 10 mg tablet 10 mg PO HS High Cholesterol 12/24/23
cholestyramine (with sugar) 4 gram 1 ea PO DAILY #60 ea 12/28/23
powder for susp in a packet
dicyclomine 20 mg tablet 20 mg PO TID #90 tabs 12/28/23
diphenoxylate-atropine 2.5 1 tab PO Q6HPRN PRN diarrhea #20 12/28/23
mg-0.025 mg tablet tabs
[2024-01-04] MEDS: QUESTRAN 4 GRAM PO (08:53)
[2024-01-04] MEDS: ANTIVERT 12.5 MG PO (08:53)
[2024-01-04] MEDS: HEPARIN 5000 UNITS SC (08:53)
[2024-01-04] MEDS: NORVASC 5 MG PO (08:54)
[2024-01-04] MEDS: ORETIC 25 MG PO (08:54)
[2024-01-04] MEDS: PAXIL 20 MG PO (08:54)
[2024-01-04] MEDS: DIOVAN 320 MG PO (08:54)
--- NOTE | 2024-01-04 10:49 | W.DS.TRANS ---
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
-
Discharge Instructions:
Discharge Diagnosis/Procedures Vertigo suspected BPPV
Diet Diabetic, Carb Controlled
Activity As tolerated
Driving Restrictions Not until seen by your Dr
Bathing Restrictions None
Other Services PT
Instructions:
Stand-Alone Forms:
Changes to Home Medications: Yes
Discharge Medications:
DC Medications w/original date entered in [employer]
valsartan 320 mg-hydrochlorothiazide 25 mg tablet (Diovan HCT) 1 tab PO DAILY@1600 Blood pressure 01/17/22
dulaglutide 0.75 mg/0.5 mL subcutaneous pen injector (Trulicity) 0.75 mg SC SA@1800 Diabetes 12/12/23
empagliflozin 25 mg tablet (Jardiance) 25 mg PO QPM Diabetes 12/12/23
vibegron 75 mg tablet (Gemtesa) 75 mg PO HS Urinary Issue 12/12/23
acetaminophen 500 mg tablet (Tylenol Extra Strength) 1,000 mg PO QID PRN mild pain 12/24/23
amlodipine 5 mg tablet 5 mg PO DAILY Blood Pressure 12/24/23
aspirin 81 mg tablet,delayed release 81 mg PO DAILY@1500 Blood Clot Prevention/Tx 12/24/23
cholecalciferol (vitamin D3) 125 mcg (5,000 unit) capsule 125 mcg PO DAILY Supplement 12/24/23
cyanocobalamin (vitamin B-12) 1,000 mcg tablet 1,000 mcg PO DAILY Supplement 12/24/23
paroxetine HCl 25 mg tablet,extended release 24 hr 25 mg PO DAILY Mental Health 12/24/23
pravastatin 10 mg tablet 10 mg PO HS High Cholesterol 12/24/23
cholestyramine (with sugar) 4 gram powder for susp in a packet 1 ea PO DAILY #60 ea 12/28/23
dicyclomine 20 mg tablet 20 mg PO TID #90 tabs 12/28/23
diphenoxylate-atropine 2.5 mg-0.025 mg tablet 1 tab PO Q6HPRN PRN diarrhea #20 tabs 12/28/23
meclizine 12.5 mg tablet 12.5 mg PO TID PRN vertigo #21 tabs 01/04/24
Home Medication Changes
New medication -antivert
Pending Results: No
--- NOTE | 2024-01-04 10:50 | W.PN.HOSP.TC ---
Today's Communication/Plan
-
DC
Assessment / Plan
Assessment / Plan
Acute episode of dizziness-based on her description more of vertigo which was associated with nausea vomiting and she had 1 loose stool. She had associated racing of the heart so got concerned and called 911. She does have still symptoms of
vertigo especially if she moves her head. Currently no nystagmus or focal neurological deficit. 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
No ataxia or limb weakness currently.
Patient denies any prior history of stroke.
Eval for post circulation stroke.Known diabetic ,HTN,hyperlipidemia
EKG in sinus rhythm;monitor without arrhythmia.
MRI brain shows no acute stroke but shows old cerebellar L side stroke.
cw aspirin
CW statin
Appt neuro input
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 CW antivert and consult PT for vestibular tx . Advised to see ENT if no improvement
Neg orthostatic BP
Recent acute diarrhea-evaluation including colonoscopy noted. Patient currently with 2 bowel movements per day. Continue with her Questran.
Diabetes mellitus-continue insulin sliding scale insulin. hemoglobin A1c 6.5
Hypertension-continue with amlodipine.
Transient hypoxia-pulmonary input noted. Currently not hypoxic. Off of oxygen. No evidence of pneumonia. D-dimer is negative. Ultrasound of the legs negative for DVT. Doubt PE. Patient known to have sleep apnea and uses CPAP. Continue to
follow.
Medically stable for DC home today
Anticipated Discharge: Today
Subjective/Interval History
-
Date of Service: January 04, 2024
Feels ok
Improved vertigo feeling
No headache
No issues with ambulation in room
Objective Data
-
Vital Signs:
Vital Signs
Temp Pulse Resp BP Pulse Ox
98.3 F 63 21 138/85 95
01/04/24 07:59 01/04/24 07:59 01/04/24 07:59 01/04/24 07:59 01/04/24 09:37
I&O
01/03/24 01/04/24 01/05/24
06:59 06:59 06:59
Intake Total 840 / 840 960 / 960
Balance 840 / 840 960 / 960
Review of Systems
-
Respiratory: Denies Trouble Breathing
Cardiac: Denies Chest Pain
Abdomen/GI: Denies Nausea or Vomiting
Physical Exam
-
General: No Apparent Distress
Respiratory: Non Labored Respirations; Negative Accessory Resp Muscle Use
Cardiac: Regular Rhythm and S1/S2
Neuro: AO x 3, No Motor Deficits and Other (no nystagmus)
Psych: Calm; Negative Confused
Data Reviewed
-
MRI: Report Reviewed by me (MRI brain)
[2024-01-04 11:29] LABS: Glucose - Point of Care 125 mg/dl (70-99)
--- NOTE | 2024-01-04 11:46 | CM ---
Patient seen bedside with daughter, discussed PT recommendations of outpatient therapy, patient agreeable. Hospitalist placed script on patients chart. IMM reviewed, signed, placed in patients chart. CM will continue to follow for all discharge
planning needs.
Plan; home no needs, script for outpatient PT provided to patient.
[2024-01-04 13:09] LABS: TSH Reflex To Free T4 1.41 uIU/ml (0.47-4.68)
[2024-01-04 13:13] LABS: Ferritin 49.8 ng/ml (11.1-264.0)
[2024-01-04 13:44] LABS: Folate 6.9 ng/ml (2.76-20); Vitamin B12 343 pg/ml (239-931)
== END 2024-01-04 11:42 | disposition home or self-care (01) | DRG 149 ==
LOC: 4 WEST ACU 06:51
PROVIDERS: Internal Medicine; ADMITTING PHYSICIAN Internal Medicine; ATTENDING PHYSICIAN Internal Medicine; CONSULT PHYSICIAN Internal Medicine Pulmonary Disease; EMERGENCY PHYSICIAN Student in an Organized Health Care Education/Training Program; FAMILY PHYSICIAN Family Medicine; OTHER PHYSICIAN Psychiatry & Neurology Neurology
PROC: 5A09357 Assistance with Respiratory Ventilation, Less than 24 Consecutive Hours, Continuous Positive Airway Pressure (ICD-10-PCS; 2024-01-04)
DX: H81.10 Benign paroxysmal vertigo, unspecified ear (principal); J98.11 Atelectasis; E11.9 Type 2 diabetes mellitus without complications; I10 Essential (primary) hypertension; E78.5 Hyperlipidemia, unspecified; G47.33 Obstructive sleep apnea (adult) (pediatric); R09.02 Hypoxemia; R06.89 Other abnormalities of breathing; K52.89 Other specified noninfective gastroenteritis and colitis; E73.9 Lactose intolerance, unspecified; I95.9 Hypotension, unspecified; E83.52 Hypercalcemia; J45.20 Mild intermittent asthma, uncomplicated; Z79.82 Long term (current) use of aspirin; Z79.84 Long term (current) use of oral hypoglycemic drugs; Z79.85 Long-term (current) use of injectable non-insulin antidiabetic drugs; Z86.19 Personal history of other infectious and parasitic diseases; Z87.891 Personal history of nicotine dependence; Z86.73 Personal history of transient ischemic attack (TIA), and cerebral infarction without residual deficits
CPT/HCPCS: 70450; 70551; 71046; 74019; 80048; 80053; 80061; 82607; 82728; 82746; 82962; 83036; 83690; 84443; 85025; 85027; 85379; 86803; 93005; 93970; 94640; 94660; 96374; 97112; 97161; 99285

== ENCOUNTER → 2024-09-07 10:59 | Outpatient (REF) | payer MEDICARE, OTHER, SELFPAY | LOC: RAD 10:59 | PROVIDERS: ATTENDING PHYSICIAN Internal Medicine Gastroenterology | DX: R19.7 Diarrhea, unspecified (principal) | CPT/HCPCS: 74018 ==

== ENCOUNTER 2024-12-10 06:20 | Day surgery (SDC) | payer MEDICARE, OTHER, SELFPAY ==
[2024-12-10 07:23] LABS: Glucose - Point of Care 107 mg/dl (70-99)
== END 2024-12-10 09:04 | disposition home or self-care (01) ==
LOC: GI 06:20
PROVIDERS: ATTENDING PHYSICIAN Internal Medicine Gastroenterology
DX: D12.3 Benign neoplasm of transverse colon (principal); K57.30 Diverticulosis of large intestine without perforation or abscess without bleeding; R19.7 Diarrhea, unspecified; Q43.8 Other specified congenital malformations of intestine; Z86.0101 Personal history of adenomatous and serrated colon polyps
CPT/HCPCS: 45380; 88305; 82962

== ENCOUNTER 2025-04-15 09:44 | Outpatient (RCR) | payer MEDICARE, OTHER, SELFPAY | END 2025-04-15 23:59 | disposition home or self-care (01) | LOC: RPT 09:44 | PROVIDERS: ATTENDING PHYSICIAN Internal Medicine Gastroenterology; FAMILY PHYSICIAN Family Medicine | DX: M62.89 Other specified disorders of muscle (principal); R15.2 Fecal urgency; R15.9 Full incontinence of feces; Z73.6 Limitation of activities due to disability | CPT/HCPCS: 97162; 97530 ==

== ENCOUNTER 2025-05-27 06:38 | Day surgery (SDC) | payer MEDICARE, OTHER, SELFPAY ==
[2025-05-27 09:50] LABS: Glucose - Point of Care 136 mg/dl (70-99)
== END 2025-05-27 11:46 | disposition home or self-care (01) ==
LOC: GI 06:38
PROVIDERS: ATTENDING PHYSICIAN Internal Medicine Gastroenterology
DX: K26.9 Duodenal ulcer, unspecified as acute or chronic, without hemorrhage or perforation (principal); Q39.9 Congenital malformation of esophagus, unspecified; K31.89 Other diseases of stomach and duodenum
CPT/HCPCS: 43239; 82962; 88305; 88341; 88342

== ENCOUNTER 2025-05-29 07:12 | Outpatient (RCR) | payer MEDICARE, OTHER, SELFPAY | END 2025-05-29 23:59 | disposition home or self-care (01) | LOC: RPT 07:12 | PROVIDERS: ATTENDING PHYSICIAN Internal Medicine Gastroenterology; FAMILY PHYSICIAN Family Medicine | DX: M62.89 Other specified disorders of muscle (principal); R15.2 Fecal urgency; R15.9 Full incontinence of feces; Z73.6 Limitation of activities due to disability | CPT/HCPCS: 97110; 97112; 97140; 97530 ==